=== PATIENT | female | born 1970 | race Caucasian/White ===

== ENCOUNTER → 2016-05-16 | Outpatient (CLI) | payer BC ==
[~2016-05-16] MED LIST: AMOX875T PO; CEPH500C2 PO; CETI10TA84 PO; CYCL-376 PO; CYCL10TA6 PO; DICL-201 PO; DULO60CA44 PO; EPIN1DRO OPB; ESCI10TA17 PO; EYED OPB; FLUT0.0529 NAE; MAGN400T6 PO; MAGNESIUM 64 PO; MULT-506 PO; OMEP-105 PO; ONDA4TAB10 SL; OXYC1TAB3 PO; PIND10TA PO; PSEU120T2 PO; SULF800T23 PO; SUMA100T16 PO; SUMA50TA17 PO; TOPI25TA99 PO; TOPI50TA16 PO; TRAM-10 PO
[2016-05-19 01:31] LABS: CHLAMYDIA TRACH RNA*** NOT DETECTED (NOT DETECTED); GC (NEIS GONORRHOEAE)RNA** NOT DETECTED (NOT DETECTED)
== END | disposition home or self-care (01) ==
LOC: C.LABSPEC 17:54
PROVIDERS: ATTEND Obstetrics & Gynecology
DX: N89.8 Other specified noninflammatory disorders of vagina (principal); Z11.3 Encounter for screening for infections with a predominantly sexual mode of transmission

== ENCOUNTER → 2016-08-08 | Day surgery (SDC) | payer BC ==
[2016-06-11 08:30] VITALS: BMI 27.0
[2016-07-16 14:39] VITALS: Ht 162.6 cm; Wt 72.7 kg
--- NOTE | 2016-08-07 17:57 | HISTORY & PHYSICAL EXAMINATION ---
DATE OF ADMISSION: 08/08/2016 HISTORY OF PRESENT ILLNESS: A 45-year-old female presents for preop history and physical requesting lesion surgery. Lesions are located in bilateral feet. Severity condition is graded as a 7 on a 10 point scale and gradually worsening over time. Pain is described as soreness and tenderness. Condition was first noted over 2 years ago. Denies any recent exposure, precipitation or event for this to this condition. Associated signs and symptoms include tenderness, bleomycin does not change the condition, excision of lesion does not change it, acid therapy, cryotherapy and debridement have all been used in addition in the past with no resolution of the discomfort. The patient is currently seeking pain management for back issues over the lesions on her foot are also aggravating her back due to ambulatory difficulties. PAST SURGICAL HISTORY: ACL repair in 1985, 1986, and 1987; ankle surgery in 1992, wisdom tooth removal in 1994, in 2004, hysterectomy. PAST MEDICAL HISTORY: Hypertension, back problems. MEDICATIONS: Diclofenac, Zyrtec, pindolol, tramadol, epinephrine, ophthalmic solution, Cymbalta. ALLERGIES: No known medical allergies. FAMILY HISTORY: Diabetes associated with mother, hypertension associated with mother and sister. REVIEW OF SYSTEMS: Unremarkable except chief complaint. SOCIAL HISTORY: The patient admits to alcohol use, drinking described as social. PHYSICAL EXAMINATION: VITAL SIGNS: Height 5 foot 4, weight 160 pounds, body mass index 27, BP 118/90, temp tympanic is 97.6 CONSTITUTIONAL: The patient appears well-developed and nourished with good attention to body grooming and habitus. HEAD AND FACE: Head is normocephalic and atraumatic without any gross head and neck masses. EYES: Conjunctival and pupillary reaction to light and accommodation normal. EARS, NOSE, MOUTH, AND THROAT: Unremarkable. NECK: Neck is supple. Trachea is midline. CARDIOVASCULAR: Normal S1, S2 without murmur, gallops, rubs, or clicks noted. RESPIRATORY: Chest is symmetric. No scars are visible. No port or pacemaker. LUNGS: Clear to auscultation bilaterally and equal. GASTROINTESTINAL: Abdominal organs, bladder, and kidneys show no abnormalities, tenderness, masses or rigidity. LYMPHATICS: No popliteal, inguinal, or supraclavicular lymphadenopathy noted. LOWER EXTREMITIES: DP palpable. PT palpable. DERMATOLOGIC: Cutaneous vascular lesions are observed on the right fifth, right fourth, right arch, plantar left fifth toe. All these areas show interruption of skin tension line and pain on lateral compression. NEUROLOGICAL: Touch, pin, vibratory and proprioception sensations are normal. Deep tendon reflexes normal. MUSCULOSKELETAL: Muscle tone is normal. Muscle strength 5/5 all groups tested. Anterior aspect of the right ankle shows evidence of capsulitis with pain, crepitus noted on range of motion of the ankle. IMPRESSION: 1. Painful cutaneous vascular lesions, bilateral feet, status post excision of lesions 07/14/2015 with recurrence. 2. Difficulty walking. 3. Pain in lower extremities. 4. Status post bleomycin injection 06/22/2015 and 03/20/2016 with recurrence of lesions. PLAN: Informed the patient the etiology and offered the following treatment options: 1. Debridement and application of acid. 2. Surgical excision. 3. Cryotherapy. 4. CO2 laser vaporization. 5. Bleomycin. Reviewed procedures and complications for each treatment at length. All questions were answered. The patient is aware that no treatment in common use is 100% effective and success rate for all treatments are relatively similar. The patient elects to proceed with CO2 laser vaporization and partial lesion excision over bilateral feet. This will be performed under local with IV sedation as an outpatient at the surgery center. Procedure, risks and complications were fully reviewed with the patient. Consent form, foot diagram and illustration reviewed in all their entirety. All the patient's questions were answered. Complications were discussed in detail with the patient including pain, infection, swelling that may or may not be excessive, pins and needles feeling, numbness, metatarsalgia, excessive bleeding, delay or nonhealing of bone, enlarged scar, failure of the procedure, recurrence or worsening of condition which may or may not require further surgery, adverse reaction to anesthesia, allergic reaction to suture or other implant material, loss of toe, foot, or leg; transfer lesion or callus, peripheral neurovascular complications such as phlebitis, damage to nerves or vascular structures, severe or chronic pain, chronic nerve pain or damage, and general medical complications. The patient will be required to be in a surgery shoe for a minimum of 3-7 days and not return to dress shoe for 3 weeks depending on postop edema, need for accommodative padding. The patient is aware this is an elective type procedure and I recommended a second opinion. She understood, consent form was signed with a copy of the foot diagram and illustration given to the patient. At the time of the preoperative appointment, prescriptions for Silvadene, Keflex and Percocet were dispensed. The patient will return to the office for postop check or sooner if medically necessary. Instructed to keep the dressing clean, dry, and intact until seen at the office. SENIA
[~2016-08-08] VITALS: Ht 162.6 cm; Wt 72.7 kg
[~2016-08-08] MED LIST changes: -AMOX875T PO; +BUPIVACAINE 0.5 % 5 MG/1 ML MPF 30ML VIAL ONE; +CEFAZOLIN 1000MG/55 ML D5W 55 ML IV SCH; +CEFAZOLIN 1000MG/55 ML D5W IV SCH; -CYCL-376 PO; +DEXAMETHASONE SOD INJ 4 MG/ML VIAL ONE; -EYED OPB; +FENTANYL CITRATE INJ 50 MCG/1 ML 2 ML VIAL IV PRN; +FENTANYL CITRATE INJ 50 MCG/1 ML 2 ML VIAL ONE; +GELATIN SPONGE 12-7MM ONE; +GELATIN SPONGE SZ 100 ONE; +LACTATED RINGER'S 1000ML 1,000 ML IV PRN; +LACTATED RINGER'S 1000ML 1,000 ML IV SCH; +LACTATED RINGER'S 1000ML IV SCH; +LIDOCAINE HCL 2% 2 ML VIAL (20MG/ML) ONE; -MAGN400T6 PO; +MIDAZOLAM HCL 1 MG/ML 2ML VIAL ONE; -ONDA4TAB10 SL; +ONDANSETRON INJ 2 MG/ML 2 ML VIAL IV PRN; +ONDANSETRON INJ 2 MG/ML 2 ML VIAL ONE; -OXYC1TAB3 PO; +PROPOFOL IV EMULSION 10 MG/ML 20 ML VIAL IV ONE; +SILVER SULFADIAZINE 1% CR 50 GM JAR EXT ONE; +SODIUM CHLORIDE 0.9% 1000ML 1,000 ML IV SCH; -SULF800T23 PO
--- NOTE | 2016-08-08 07:00 | History & Physical Bridge - SC ---
H&P Re-Evaluation Bridge Note: I have examined the patient, reviewed the History & Physical and in the interval since the performance of the History & Physical I have noted the following changes of clinical significance: No changes noted
--- NOTE | 2016-08-08 07:01 | Discharge Instructions-SurgCtr ---
Discharge Instructions Date of Service Aug 08, 2016. Visit Reason for Visit: Bilateral Feet Vascular Lesions, Metatarsalgia Discharge Discharge Diagnosis / Problem: same as above Discharge Goals Goal(s): Decrease discomfort Medications Stopped Medications Name(s): diclofenac, cymbalta, flexeril, and tramadol, last doses 1 week ago. Activity Recommendations Activity Limitations: as noted below Medications: * Resume previous medications unless instructed by your surgeon. * Take your medications as prescribed. Call our office ([phone]) at any time, if you experience severe pain that does not subside shortly after taking your pain medication. Activity: * You may walk on your operated foot/ankle using the surgical shoe or cast/splint. Do not put any weight on your operated foot/ankle without wearing the surgical shoe or cast sandal.. Special Care: * Keep your bandage clean and dry. Do not remove your bandage unless otherwise instructed. A small amount of blood may appear on the bandage over the surgical site. Call our office ([phone]) if you bandage becomes blood-soaked or wet. * Elevate your operated foot/ankle on pillows, above the level of your heart, as often as possible during the first 2-3 days following surgery. Keep your knee flexed slightly with a pillow under your knee when you elevate your foot/ankle. * Apply a ice bag to your foot/ankle over the operative site for 20-30 minutes out of each hour while you are awake. Do not allow the ice bag to directly contact bare skin. * Avoid bumping or handling any pins visible in your toes. If any pin feels or appears loose, call the office ([phone]). * Take your oral temperature in the morning and at bedtime. Call our office ([phone]) if your temperature rises above 101 degrees Fahrenheit. Call your surgeon's office at ([phone]) for any problems or concerns such as excessive bleeding and/or pain unrelieved by your prescribed pain medications. If you have any questions, please do not hesitate to ask them. Avoid all tobacco products. If you need help to stop smoking, call [place]'s FREE QUITLINE at . This is a free call. Follow-up: Follow-up with Dr. Guerra Anesthesia . Post Anesthesia Instructions: If you have had General Anesthesia or IV Sedation: * Do not drive today. * Resume driving when surgeon permits. * Do not make important decisions or sign legal documents today. * Call surgeon for: 1. Temperature elevations greater than 101 degrees F. 2. Uncontrollable pain. 3. Excessive bleeding. 4. Persistent nausea and vomiting. 5. Medication intolerance (nausea, vomiting or rash). * For nausea and vomiting use only clear liquids such as: tea, soda, bouillon until nausea subsides, then gradually increase diet as tolerated. * If you have any concerns or questions, call your surgeon's office. If physician is unavailable and it is an emergency, call 911 or go to the nearest emergency room. . Diet Recommendations Home Diet: resume previous diet Pending Studies Studies pending at discharge: no Medical Emergencies . Who to Call and When: Medical Emergencies: If at any time you feel your situation is an emergency, please call 911 immediately. . Non-Emergent Contact Non-Emergency issues call your: Primary Care Provider . . "Provider Documentation" section prepared by Maya Alvarez. .
--- NOTE | 2016-08-08 07:54 | OPERATIVE REPORT ---
DATE OF OPERATION: 08/08/2016 SURGEON: Dr. Guerra. PREOPERATIVE DIAGNOSES: 1. Painful lesions. 2. Cutaneous vascular lesions bilateral lower extremities. POSTOPERATIVE DIAGNOSES: Same. PROCEDURE: 1. CO2 laser vaporization less than 10 square cm bilateral lower extremities. 2. Partial lesion excision to a depth of 1.2 cm, 2 areas on the right and 3 areas on the left for a total of 5 partial lesion excisions. ANESTHESIA: General with local field block performed with 0.5% Marcaine plain, total of 30 mL HEMOSTASIS: Gelfoam. ESTIMATED BLOOD LOSS: Minimal. COMPLICATIONS: None. The patient tolerated the procedure and anesthesia well without complications, transferred to the recovery room with vital signs stable and neurovascular status intact. I attest to the content of the Intraoperative Record and any orders documented therein. Any exceptio ns are noted below.
--- NOTE | 2016-08-08 08:02 | Anesthesia Progress Nt - [facility] ---
Anesthesia Post Op Note Date & Time Aug 08, 2016 at 08:01 Vital Signs Pain Intensity: 0 Vital Signs Past 12 Hours Date Time Temp Pulse Resp B/P Pulse Ox O2 Delivery O2 Flow Rate FiO2 08/08/16 07:42 36.5 81 14 109/87 0 Mask 6 08/08/16 06:31 36.5 76 18 132/92 97 Room Air Notes Mental Status: alert / awake / arousable, participated in evaluation Pt Amnestic to Procedure: Yes Nausea / Vomiting: adequately controlled Pain: adequately controlled Airway Patency, RR, SpO2: stable & adequate BP & HR: stable & adequate Hydration State: stable & adequate Anesthetic Complications: no major complications apparent After a long discussion about GA vs IV sedation, pt chose GA. She did fine. SpO2 100%, not zero as noted above.
[2016-08-08 08:20] VITALS: TEMP 36.6
[2016-08-08 08:45] VITALS: BP 122/81; PULSE 63; O2SAT 99
== END | disposition home or self-care (01) ==
LOC: X.SURG 06:13
PROVIDERS: ATTEND Podiatrist Foot & Ankle Surgery
DX: L85.9 Epidermal thickening, unspecified (principal); I10 Essential (primary) hypertension; Z79.899 Other long term (current) drug therapy

== ENCOUNTER → 2016-08-28 | Outpatient (CLI) | payer BC ==
[~2016-08-28] MED LIST changes: -BUPIVACAINE 0.5 % 5 MG/1 ML MPF 30ML VIAL ONE; -CEFAZOLIN 1000MG/55 ML D5W 55 ML IV SCH; -CEFAZOLIN 1000MG/55 ML D5W IV SCH; -DEXAMETHASONE SOD INJ 4 MG/ML VIAL ONE; -FENTANYL CITRATE INJ 50 MCG/1 ML 2 ML VIAL IV PRN; -FENTANYL CITRATE INJ 50 MCG/1 ML 2 ML VIAL ONE; -GELATIN SPONGE 12-7MM ONE; -GELATIN SPONGE SZ 100 ONE; -LACTATED RINGER'S 1000ML 1,000 ML IV PRN; -LACTATED RINGER'S 1000ML 1,000 ML IV SCH; -LACTATED RINGER'S 1000ML IV SCH; -LIDOCAINE HCL 2% 2 ML VIAL (20MG/ML) ONE; -MIDAZOLAM HCL 1 MG/ML 2ML VIAL ONE; -ONDANSETRON INJ 2 MG/ML 2 ML VIAL IV PRN; -ONDANSETRON INJ 2 MG/ML 2 ML VIAL ONE; -PROPOFOL IV EMULSION 10 MG/ML 20 ML VIAL IV ONE; -SILVER SULFADIAZINE 1% CR 50 GM JAR EXT ONE; -SODIUM CHLORIDE 0.9% 1000ML 1,000 ML IV SCH
[2016-08-31 11:44] LABS: CHLAMYDIA TRACH RNA*** NOT DETECTED (NOT DETECTED); GC (NEIS GONORRHOEAE)RNA** NOT DETECTED (NOT DETECTED)
== END | disposition home or self-care (01) ==
LOC: C.LABSPEC 13:25
PROVIDERS: ATTEND Obstetrics & Gynecology
DX: N76.0 Acute vaginitis (principal)

== ENCOUNTER → 2016-12-13 | Outpatient (CLI) | payer BC ==
[~2016-12-13] MED LIST changes: -CEPH500C2 PO; -SUMA50TA17 PO; -TOPI25TA99 PO
== END | disposition home or self-care (01) ==
LOC: C.LABSPEC 17:32
PROVIDERS: ATTEND Physician Assistant
DX: N76.0 Acute vaginitis (principal)

== ENCOUNTER → 2017-01-21 | Outpatient (CLI) | payer BC ==
--- NOTE | 2017-01-22 07:40 | MAMMOGRAPHY REPORT ---
BILATERAL DIGITAL SCREENING MAMMOGRAM TOMOSYNTHESIS WITH CAD: 01/21/2017 CLINICAL HISTORY: Routine screening. Patient has no complaints. TECHNIQUE: Breast tomosynthesis in addition to standard 2D mammography was performed. Current study was also evaluated with a Computer Aided Detection (CAD) system. COMPARISON: Comparison is made to exams dated: 01/19/2016 mammogram, 05/21/2013 mammogram, 11/10/2009 ma mmogram, 07/11/2005 mammogram, and 11/10/2009 ultrasound - [facility]. BREAST COMPOSITION: The tissue of both breasts is almost entirely fatty. FINDINGS: No suspicious mass, architectural distortion or cluster of microcalcifications is seen. IMPRESSION: ACR BI-RADS CATEGORY 1: NEGATIVE There is no mammographic evidence of malignancy. A 1 year screening mammogram is recommended. The pa tient will receive written notification of the results. Approximately 10% of breast cancers are not detected with mammography. A negative mammographic report should not delay biopsy if a clinically suggestive mass is present. Lizette tobias/penfreida:01/21/2017 14:42:54 Digital Photo Printer: Katerin MARTIN(Susan)(M), [facility] letter sent: Normal 1/2 BI-RADS Code: ACR BI-RADS Category 1: Negative
== END | disposition home or self-care (01) ==
LOC: C.MAMM 09:38
PROVIDERS: ATTEND Obstetrics & Gynecology
DX: Z12.31 Encounter for screening mammogram for malignant neoplasm of breast (principal)

== ENCOUNTER → 2017-01-22 | Outpatient (CLI) | payer BC | END | disposition home or self-care (01) | LOC: C.LABSPEC 17:04 | PROVIDERS: ATTEND Podiatrist Foot & Ankle Surgery | DX: L60.0 Ingrowing nail (principal) ==

== ENCOUNTER → 2017-04-16 | Outpatient (CLI) | payer BC ==
[2017-04-16 13:06] LABS: BASO % 0.3 %; BASO ABS # 0.02 K/uL (0-0.2); EOS % 4.2 %; EOS ABS # 0.26 K/uL (0-0.5); HEMATOCRIT 43.6 % (37-47); HEMOGLOBIN 14.7 g/dL (12.0-16.0); IG# 0.05 K/uL (0.00-0.02); LYMPH ABS # 1.53 K/uL (1.2-3.4); MEAN CELL VOLUME 91.8 fL (80-100); MEAN CORPUSCULAR HEMOGLOBIN 30.9 pg (25-34); MEAN CORPUSCULAR HGB CONC 33.7 g/dl (32-36); MEAN PLATELET VOLUME 9.1 fL (7.4-10.4); MONO % 6.5 %; NEUT % 63.2 %; NEUT ABS # 3.87 K/uL (1.4-6.5); PLATELET COUNT 287 K/uL (130-400); RED CELL DISTRIBUTION WIDTH CV 13.1 % (11.5-14.5); RED CELL DISTRIBUTION WIDTH SD 43.7 fL (36.4-46.3); WHITE BLOOD COUNT 6.13 K/uL (4.8-10.8)
--- NOTE | 2017-05-07 13:31 | CODING QUERY NO DIAGNOSIS ---
TREATMENT RENDERED WITHOUT A DIAGNOSIS To promote full compliance with coding requirements relating to patient care, physician participation is requested in all cases of area field worker uncertainty. Please assist us with providing a diagnosis/symptom for the test(s) below: A diagnosis/symptom was not documented on your Order. A valid diagnosis/symptom is required to bill all insurances. Please remember that we are unable to code a diagnosis of rule out, probable, possible, questionable, or suspected. Tests that require a diagnosis: * CBC W/ AUTO DIFF DIAGNOSIS: * ERYTHROCYTE SEDIMENTATION RATE DIAGNOSIS: * URIC ACID DIAGNOSIS: Provider Signature: Date: Thank you Sarah Gomez [employer] Once completed, please kindly fax back to [phone] For questions please call [phone]
== END | disposition home or self-care (01) ==
LOC: C.LAB1850 11:38
PROVIDERS: ATTEND Podiatrist Foot & Ankle Surgery
DX: M79.671 Pain in right foot (principal)

== ENCOUNTER → 2017-04-17 | Outpatient (CLI) | payer BC ==
[~2017-04-17] MED LIST changes: +FLUT0.15 NAE; -OMEP-105 PO; +OMEP-107 PO; +TOPI100T34 PO
--- NOTE | 2017-04-17 09:29 | DIAGNOSTIC IMAGING REPORT ---
VENOUS DOPP LOWER EXT UNILAT CLINICAL HISTORY: R LEG SWELLING/PAIN, R/O DVT TECHNIQUE: Venous Doppler COMPARISON STUDY: 05/29/2012 FINDINGS: Normal venous Doppler right leg IMPRESSION: Normal venous Doppler right leg The above report was generated using voice recognition software. It may contain grammatical, syntax or spelling errors. Electronically signed by: Kobi Steen M.D. 04/17/2017 9:28 AM Dictated Date/Time: 04/17/2017 9:12 AM
== END | disposition home or self-care (01) ==
LOC: C.ULTR 08:46
PROVIDERS: ATTEND Podiatrist Foot & Ankle Surgery
DX: I82.491 Acute embolism and thrombosis of other specified deep vein of right lower extremity (principal)

== ENCOUNTER → 2017-05-20 | Outpatient (CLI) | payer BC ==
[~2017-05-20] MED LIST changes: -FLUT0.15 NAE; +OMEP-105 PO; -OMEP-107 PO; -TOPI100T34 PO
== END | disposition home or self-care (01) ==
LOC: C.PATHSPEC 17:28
PROVIDERS: ATTEND Podiatrist Foot & Ankle Surgery
DX: B07.9 Viral wart, unspecified (principal)

== ENCOUNTER → 2017-07-04 | Outpatient (CLI) | payer BC | END | disposition home or self-care (01) | LOC: C.LABSPEC 17:25 | PROVIDERS: ATTEND Podiatrist Foot & Ankle Surgery | DX: B07.8 Other viral warts (principal) ==

== ENCOUNTER → 2017-08-08 | Outpatient (CLI) | payer BC ==
[~2017-08-08] MED LIST changes: -OMEP-105 PO; +OMEP-107 PO
== END | disposition home or self-care (01) ==
LOC: C.LABSPEC 16:49
PROVIDERS: ATTEND Podiatrist Foot & Ankle Surgery
DX: B07.8 Other viral warts (principal)

== ENCOUNTER 2020-12-02 10:55 | Inpatient (IN) ==
[2020-12-02] MEDS ORDERED: SODIUM CHLORIDE 0.9% 1000ML 1,000 ML IV ONE ×2 (11:40→15:58)
[2020-12-02] MEDS ORDERED: ONDANSETRON INJ 2 MG/ML 2 ML VIAL IV STA (11:40)
[2020-12-02] MEDS ORDERED: KETOROLAC TROMETHAMINE 15 MG/ML VIAL IV STA (11:40)
--- NOTE | 2020-12-02 11:43 | Emergency Department Note ---
History of Present Illness General Chief complaint: Flank Pain Stated complaint: L SIDE FLANK PAIN,KIDNEY STONE Time Seen by Provider: 12/02/20 11:15 Source: patient Mode of arrival: ambulatory Limitations: no limitations History of Present Illness Maximum Pain Intensity: 10 This patient is a 50-year-old female who presents to the emergency department for evaluation of left flank pain. Patient states that she was seen here 2 days ago and diagnosed with a kidney stone on the left side. She states that her pain was not under control, but she was discharged home. She states she has been unable to keep any of her medications down. She has had vomiting and explosive diarrhea. She reports she has had night sweats, but has not taken her temperature. She has an appointment in [address] [facility] u[facility]. She rates her current pain a 10/10. Home Medications Medication Instructions Recorded Confirmed Type cetirizine 10 mg tablet (Zyrtec) 10 mg PO DAILY 07/05/18 12/02/20 History multivitamin 1 tab PO DAILY 07/05/18 12/02/20 History promethazine 25 mg tablet 25 mg PO TID PRN 30 Days #90 tab 11/12/19 12/02/20 Rx omeprazole 40 mg capsule,delayed 40 mg PO DAILY PRN 02/09/20 12/02/20 History release metoprolol succinate 25 mg 25 mg PO DAILY #90 tab 04/14/20 12/02/20 Rx tablet,extended release 24 hr cyclobenzaprine 10 mg tablet 10 mg PO BID PRN 30 Days #60 tab 07/27/20 12/02/20 Rx diclofenac sodium 75 mg 75 mg PO BID 30 Days #60 tab 07/27/20 12/02/20 Rx tablet,delayed release topiramate 100 mg tablet 100 mg PO BID #60 tab 07/27/20 12/02/20 Rx fluticasone propionate 50 2 spray INTRANASAL DAILY #48 gm 09/02/20 12/02/20 Rx mcg/actuation nasal spray,suspension (Flonase Allergy Relief) fremanezumab-vfrm 225 mg/1.5 mL 225 mg SUBCUT MONTHLY #1.5 ml 09/28/20 12/02/20 Rx subcutaneous auto-injector (Ajovy) magnesium chloride 64 mg 64 mg PO DAILY #30 tab 09/28/20 12/02/20 Rx (magnesium chloride) tablet,delayed release (Mag 64) sumatriptan succinate 100 mg 100 mg PO .COMPLEX PRN 30 Days #9 09/28/20 12/02/20 Rx tablet (Imitrex) tab escitalopram oxalate 10 mg tablet 10 mg PO DAILY #30 tab 11/23/20 12/02/20 Rx epinastine 0.05 % eye drops 2 drp OPHTHALMIC (EYE) QAM #5 ml 11/28/20 12/02/20 Rx ondansetron 4 mg disintegrating 4 mg PO Q8H PRN #10 tab 11/30/20 12/02/20 Rx tablet oxycodone 5 mg tablet 5 mg PO Q6H PRN #12 tab 11/30/20 12/02/20 Rx tamsulosin 0.4 mg capsule (Flomax) 0.4 mg PO DAILY 7 Days #7 cap 11/30/20 12/02/20 Rx Allergies Allergy/AdvReac Type Severity Reaction Status Date / Time diclofenac [From Pennsaid] AdvReac Intermediate Nausea Unverified 12/02/20 11:44 Past Med/Surg History Medical History (Updated 12/02/20 @ 20:22 by Diana Hannah PA-C) Cervicogenic headache Dehiscence of vaginal cuff HTN (hypertension) Lumbar facet joint syndrome Migraine Migraine without aura, not intractable, without status migrainosus Obstructive uropathy Renal colic Status post hysteroscopy UTI (urinary tract infection) Surgical History History of ankle surgery History of endometrial ablation S/P ACL repair S/P section S/P colonoscopy S/P knee surgery Family History Mother Adenosarcoma Unknown Hypertension Nephrolithiasis Father Leukemia Other Family history non-contributory Denies family history of Ovarian cancer Prostate cancer Myocardial infarction Breast cancer Colorectal cancer Social History Smoking Status: Never smoker Second Hand Exposure: No; Hx Alcohol Use: Yes Alcohol type: beer and wine Alcohol Intake Frequency: 2-4 x/Month Hx Substance Use: No Preferred Language: Italian Communication Ability: Effective Psych Coordinator Required: No Beliefs That Will Affect Care: None marital status: Legally Current Living Situation: Alone current occupational status: employed 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[employer] Other Information That Helps Us Care for You: No Feels Safe at Home: Yes Safety Concerns: Feels Safe At This Time Childhood Exposure to Second-Hand Smoke: No Dental Care, Regularly: Yes Physical Activity Frequency: Does not Exercise Seatbelt Use: always Sunscreen Use: No Assistive Devices: None Review of Systems A total of 10 systems reviewed and were otherwise negative Physical Exam Vital Signs Vital Signs - 24 hr 12/02/20 11:07 12/02/20 11:24 12/02/20 11:39 Temperature 36.9 C 37.2 C Temperature Source Oral Oral Pulse Rate 123 H 99 H Pulse Rate [Finger] Pulse Rhythm Regular Regular Pulse Rhythm [Finger] Respiratory Rate 18 18 16 Respiratory Effort / Characteristics Non-Labored Spontaneous Non-Labored Respiratory Depth Normal Normal Blood Pressure 144/89 H Blood Pressure [Left Arm] 161/110 H Blood Pressure Mean 107 Blood Pressure Mean [Left Arm] 127 Pulse Oximetry 96 96 Oxygen Delivery Method Room Air Room Air Sepsis Recent Fever Within 48 Hours No Sepsis New/Unexplained Change in Mental Status No Sepsis Action Taken by Nursing No Action Required 12/02/20 14:00 Temperature Temperature Source Pulse Rate Pulse Rate [Finger] 95 H Pulse Rhythm Pulse Rhythm [Finger] Regular Respiratory Rate 15 Respiratory Effort / Characteristics Non-Labored Respiratory Depth Normal Blood Pressure Blood Pressure [Left Arm] Blood Pressure Mean Blood Pressure Mean [Left Arm] Pulse Oximetry 96 Oxygen Delivery Method Sepsis Recent Fever Within 48 Hours Sepsis New/Unexplained Change in Mental Status Sepsis Action Taken by Nursing VITALS: Vitals are noted on the nurse's note and reviewed by myself. GENERAL: This is a 50-year-old female, uncomfortable appearing, in mild distress secondary to pain. SKIN: The skin was without rashes. EYES: Pupils equal round and reactive to light and accommodation. MOUTH: Mucous membranes moist. Tonsils are not enlarged. Pharynx without erythema or exudate. NECK: Supple without nuchal rigidity. HEART: Regular rate and rhythm without murmurs gallops or rubs. LUNGS: Clear to auscultation bilaterally without wheezes, rales or rhonchi. ABDOMEN: Positive bowel sounds x 4. Soft, mild left lower quadrant tenderness to palpation. Left CVA tenderness. No guarding or rebound tenderness. NEURO: Patient was alert and oriented to person place and time. Course Consultations Consultation #1: Dr. Castorena - [facility] [place] hospitalist Administered Medications Lactated Ringer's (Lr) 1,000 mls @ 125 mls/hr IV .Q8H JAKE Stop: 12/03/20 11:24 Last Admin: 12/02/20 19:52 Dose: 125 mls/hr Documented by: [id number] Tamsulosin HCl (Tamsulosin Hcl 0.4 Mg Cap) 0.4 mg PO DAILY JAKE Stop: 01/01/21 19:24 Last Admin: 12/02/20 20:05 Dose: 0.4 mg Documented by: [id number] Discontinued Medications Sodium Chloride (Nss 1000ml) 1,000 mls @ 999 mls/hr IV .Q1H1M ONE Stop: 12/02/20 12:40 Last Infusion: 12/02/20 13:47 Dose: 0 mls/hr Documented by: [id number] Infusion: 12/02/20 13:35 Dose: 0 mls/hr Documented by: [id number] Admin: 12/02/20 12:41 Dose: 999 mls/hr Documented by: [id number] Sodium Chloride (Nss 1000ml) 1,000 mls @ 999 mls/hr IV .Q1H1M ONE Stop: 12/02/20 16:58 Last Infusion: 12/02/20 17:52 Dose: 0 mls/hr Documented by: [id number] Admin: 12/02/20 16:27 Dose: 999 mls/hr Documented by: [id number] Ketorolac Tromethamine (Ketorolac Tromethamine 15 Mg/Ml Vial) 15 mg IV NOW STA Stop: 12/02/20 11:41 Last Admin: 12/02/20 12:41 Dose: 15 mg Documented by: [id number] Morphine Sulfate (Morphine Sulfate 4 Mg/Ml 1 Ml Carp\Vial) 4 mg IV NOW STA Stop: 12/02/20 15:59 Last Admin: 12/02/20 16:26 Dose: 4 mg Documented by: [id number] Ondansetron HCl (Ondansetron Inj 2 Mg/Ml 2 Ml Vial) 4 mg IV NOW STA Stop: 12/02/20 11:41 Last Admin: 12/02/20 12:41 Dose: 4 mg Documented by: [id number] Medical Decision Making Differential Diagnosis Differential diagnosis includes renal calculus, pyelonephritis, musculoskeletal pain, ruptured AAA, aortic dissection, diverticulitis, perforated viscus, bowel obstruction, biliary pathology, pancreatitis, PE, pneumonia, pneumothorax, trauma, herpes zoster, malignancy, among others. Home Medications Current Medication List: was personally reviewed by me Laboratory Data Attestation: I reviewed the patient's lab results. Result diagrams: 12/02/20 11:30 12/02/20 11:30 Lab Results 12/02/20 12/02/20 12/02/20 Range/Units 11:30 11:30 14:00 WBC 7.24 (4.8-10.8) K/uL RBC 5.09 (4.2-5.4) M/uL Hgb 15.6 (12.0-16.0) g/dL Hct 46.2 (37-47) % MCV 90.8 (80-100) fL MCH 30.6 (25-34) pg MCHC 33.8 (32-36) g/dL RDW Std Deviation 43.7 (36.4-46.3) fL RDW Coeff of Faustino 13.3 (11.5-14.5) % Plt Count 292 (130-400) K/uL MPV 9.3 (7.4-10.4) fL Immature Gran % (Auto) 0.3 % Neut % (Auto) 77.6 % Lymph % (Auto) 11.2 % [place] % (Auto) 9.0 % Eos % (Auto) 1.8 % Baso % (Auto) 0.1 % Neut # (Auto) 5.62 (1.4-6.5) K/uL Lymph # (Auto) 0.81 L (1.2-3.4) K/uL [place] # (Auto) 0.65 H (0.11-0.59) K/uL Eos # (Auto) 0.13 (0-0.5) K/uL Baso # (Auto) 0.01 (0-0.2) K/uL Immature Gran # (Auto) 0.02 (0.00-0.02) K/uL Sodium 140 (136-145) mmol/L Potassium TNP Chloride 111 H (98-107) mmol/L Carbon Dioxide 23 (21-32) mmol/L Anion Gap 6.0 (3-11) BUN 21 H (7-18) mg/dl Creatinine 1.26 H (0.6-1.2) mg/dl Est Cr Clr Drug Dosing 59.8 ml/min Est GFR ( Amer) 57.9 ml/min Est GFR (Non-Af Amer) 50.0 ml/min BUN/Creatinine Ratio 16.9 (10-20) Glucose 137 H (70-99) mg/dl Calcium 8.4 L (8.5-10.1) mg/dl Total Bilirubin 0.5 (0.2-1) mg/dl AST TNP ALT 33 (12-78) U/L Alkaline Phosphatase 121 H (45-117) U/L Total Protein 7.7 (6.4-8.2) gm/dl Albumin 3.2 L (3.4-5.0) gm/dl Globulin 4.5 H (2.5-4.0) gm/dl Albumin/Globulin Ratio 0.7 L (0.9-2) Urine Color Dark Yellow Urine Appearance Clear (Clear) Urine pH 5.5 (4.5-7.5) Ur Specific [place] 1.024 (1.000-1.030) Urine Protein Trace H (Negative) Urine Glucose (UA) Negative (Negative) Urine Ketones 1+ H (Negative) Urine Blood Negative (Negative) Urine Nitrite Negative (Negative) Urine Bilirubin Negative (Negative) Urine Urobilinogen Negative (Negative) Ur Leukocyte Esterase Negative (Negative) Urine WBC (Auto) 10-30 H (0-5) /hpf Urine RBC (Auto) 0-4 (0-4) /hpf U Hyaline Cast (Auto) 5-10 H (0-5) /lpf U Epithel Cells (Auto) >30 H (0-5) /lpf Urine Bacteria (Auto) 1+ H (Negative) COVID-19 Eval Order SARS-CoV-2 (PCR) (Negative) 12/02/20 12/02/20 Range/Units 14:50 14:50 WBC (4.8-10.8) K/uL RBC (4.2-5.4) M/uL Hgb (12.0-16.0) g/dL Hct (37-47) % MCV (80-100) fL MCH (25-34) pg MCHC (32-36) g/dL RDW Std Deviation (36.4-46.3) fL RDW Coeff of Faustino (11.5-14.5) % Plt Count (130-400) K/uL MPV (7.4-10.4) fL Immature Gran % (Auto) % Neut % (Auto) % Lymph % (Auto) % [place] % (Auto) % Eos % (Auto) % Baso % (Auto) % Neut # (Auto) (1.4-6.5) K/uL Lymph # (Auto) (1.2-3.4) K/uL [place] # (Auto) (0.11-0.59) K/uL Eos # (Auto) (0-0.5) K/uL Baso # (Auto) (0-0.2) K/uL Immature Gran # (Auto) (0.00-0.02) K/uL Sodium (136-145) mmol/L Potassium Chloride (98-107) mmol/L Carbon Dioxide (21-32) mmol/L Anion Gap (3-11) BUN (7-18) mg/dl Creatinine (0.6-1.2) mg/dl Est Cr Clr Drug Dosing ml/min Est GFR ( Amer) ml/min Est GFR (Non-Af Amer) ml/min BUN/Creatinine Ratio (10-20) Glucose (70-99) mg/dl Calcium (8.5-10.1) mg/dl Total Bilirubin (0.2-1) mg/dl AST ALT (12-78) U/L Alkaline Phosphatase (45-117) U/L Total Protein (6.4-8.2) gm/dl Albumin (3.4-5.0) gm/dl Globulin (2.5-4.0) gm/dl Albumin/Globulin Ratio (0.9-2) Urine Color Urine Appearance (Clear) Urine pH (4.5-7.5) Ur Specific [place] (1.000-1.030) Urine Protein (Negative) Urine Glucose (UA) (Negative) Urine Ketones (Negative) Urine Blood (Negative) Urine Nitrite (Negative) Urine Bilirubin (Negative) Urine Urobilinogen (Negative) Ur Leukocyte Esterase (Negative) Urine WBC (Auto) (0-5) /hpf Urine RBC (Auto) (0-4) /hpf U Hyaline Cast (Auto) (0-5) /lpf U Epithel Cells (Auto) (0-5) /lpf Urine Bacteria (Auto) (Negative) COVID-19 Eval Order Covid19 at [facility] SARS-CoV-2 (PCR) NEGATIVE (Negative) Imaging Data Attestation: I personally reviewed and interpreted this imaging study as follo ws: Radiologist's Impression: KUB X-Ray 12/02/20 11:40 XR KUB/Abdomen 1 view CLINICAL HISTORY: left flank pain, kidney stone COMPARISON STUDY: November 30, 2020 FINDINGS: Multiple gas-filled loops of bowel are dilated measuring up to 7.8 cm in diameter. No significant bowel loops dilatation was seen on prior study Gas-filled loop of bowel is seen projecting to pelvic region. Multiple calcifications are seen within bilateral hemiabdomen and may or may not represent nephrolithiasis, stable since prior, largest is seen on the right and measured 1.6 cm. IMPRESSION: 1. Interval dilatation of loops of large bowel, might represent ileus. Development of bowel obstruction cannot be completely ruled out. Please correlate above-mentioned findings with clinical presentation. 2. Stable multiple calculi within the abdomen, unchanged since recent prior study performed on December 01, 2019. ACT 112: Negative or not required by law. The above report was generated using voice recognition software. It may contain grammatical, syntax or spelling errors. Electronically signed by: Jocelin Stevenson DO 12/02/2020 12:45 PM Abdomen/Pelvis CT 12/02/20 13:34 CT SCAN OF THE ABDOMEN AND PELVIS WITHOUT IV CONTRAST CLINICAL HISTORY: Left flank pain. Known left ureteral calculus. COMPARISON STUDY: Abdominal CT dated 11/30/2020. TECHNIQUE: CT scan of the abdomen and pelvis is performed from the lung bases to the proximal femora. Images are reviewed in the axial, sagittal, and coronal planes. IV contrast was not administered for this examination. A dose lowering technique was utilized adhering to the principles of ALARA. CT DOSE: 869.47 mGy.cm FINDINGS: Lung bases: The heart is normal in size and without pericardial effusion. There are scattered coronary artery calcifications. The lung bases are clear noting bibasilar scarring/atelectasis. Liver: The unenhanced liver is enlarged, measuring over 21 cm in length. The liver demonstrates diffusely diminished attenuation consistent with hepatic steatosis. There is no intrahepatic biliary ductal dilatation. Gallbladder: Unremarkable. Spleen: Normal in size and attenuation. Pancreas: Unremarkable. Adrenal glands: Unremarkable. Kidneys: The unenhanced kidneys are normal in size. There is a 6 mm obstructing calculus again seen in the left ureter on image #324. This is unchanged in position from 11/30/2020, located at the level of L5-S1 and causing moderate left hydroureteronephrosis. There is associated left-sided perinephric and periureteric stranding and trace fluid. There are least 5 additional nonobstructing left renal calculi which measure up to 5 mm. There are least 6 additional nonobstructing right renal calculi which measure up to 10 mm. No right ureteral stone is seen. There is no right-sided hydronephrosis. There is no evidence of contour deforming renal mass lesion. Abdominal vasculature: The abdominal aorta is normal in course and caliber. Bowel: There are scattered colonic diverticula without CT evidence of acute diverticulitis. Liquid stool is noted in the colon. The appendix is well- visualized and normal. Peritoneum: There is no intraperitoneal free air or abdominal ascites. Lymphadenopathy: None. Pelvic viscera: The bladder is normal as visualized. The uterus is surgically absent. A 2.8 cm dominant follicle is again seen in the left ovary. Skeletal structures: No lytic or blastic lesions are seen. IMPRESSION: 1. No significant change from study performed 2 days previously. A 6 mm obstructing calculus is again seen in the mid left ureter as above causing moderate left hydroureteronephrosis. 2. Numerous additional nonobstructing calculi are seen in both kidneys as above. 3. Hepatomegaly and hepatic steatosis. 4. Scattered colonic diverticula without CT evidence of acute diverticulitis. 5. Additional findings as above. ACT 112: Negative or not required by law. Electronically signed by: Miguel Dutton M.D. 12/02/2020 2:26 PM MDM Narrative Continuous radiation monitor: Order was placed for continuous radiation monitor. Patient was placed on the radiation monitor. Patient was noted to be in sinus tachycardia at an initial rate of 105 bpm. The patient is a 50-year-old female who presents today complaining of uncontrolled symptoms of a kidney stone. Patient was seen here 2 days ago and diagnosed with a left ureteral stone. She has been unable to keep her med ication down at home and states that her symptoms are poorly controlled due to this. Her labs revealed no leukocytosis. Creatinine is minimally elevated. Urinalysis is not suggestive of infection. An x-ray was performed and there were findings suggestive of possible bowel obstruction, therefore a repeat CT was performed. This showed no evidence of bowel obstruction but did show a redemonstration of the left ureteral stone. Patient received 2 L of IV fluids, Toradol, Zofran and a dose of morphine. She did not feel that she would be able to control her symptoms at home. The case was discussed with the [facility] Hospitalist service, who agreed to evaluate the patient for further care. Impression & Plan Calculus of left ureter, Vomiting Discharge Plan Visit Data Chief Complaint: Flank Pain Stated Complaint: L SIDE FLANK PAIN,KIDNEY STONE ED Provider: Mark Greco ED Midlevel Provider: Diana Hannah Discharge Problem: Calculus of left ureter, Vomiting Patient Disposition: Admitted As Inpatient Discharge Instructions Interventions: ED Discharge Assessment Last Done: 12/02/20 18:28 Discharge Problem: Vomiting Qualifiers: Vomiting type: unspecified Vomiting Intractability: non-intractable Nausea presence: with nausea Qualified Code(s): R11.2 - Nausea with vomiting, unspecified
[2020-12-02 11:55] LABS: Basophils # (auto) 0.01 K/uL (0-0.2); Basophils % (auto) 0.1 %; Eosinophils # (auto) 0.13 K/uL (0-0.5); Eosinophils % (auto) 1.8 %; Hematocrit (blood only) 46.2 % (37-47); Hemoglobin 15.6 g/dL (12.0-16.0); Immature Granulocytes # (auto) 0.02 K/uL (0.00-0.02); Immature Granulocytes % (auto) 0.3 %; Lymphocytes # (auto) 0.81 K/uL (1.2-3.4); Lymphocytes % (auto) 11.2 %; Mean Corpuscular Hemoglobin 30.6 pg (25-34); Mean Corpuscular Hgb Conc 33.8 g/dL (32-36); Mean Corpuscular Volume 90.8 fL (80-100); Mean Platelet Volume 9.3 fL (7.4-10.4); Monocytes # (auto) 0.65 K/uL (0.11-0.59); Neutrophils # (auto) 5.62 K/uL (1.4-6.5); Neutrophils % (auto) 77.6 %; Platelet Count 292 K/uL (130-400); RDW Coefficient of Variation 13.3 % (11.5-14.5); RDW Standard Deviation 43.7 fL (36.4-46.3); Red Blood Count 5.09 M/uL (4.2-5.4); White Blood Count 7.24 K/uL (4.8-10.8)
[2020-12-02 12:10] LABS: Alanine Aminotransferase 33 U/L (12-78); Albumin Globulin Ratio 0.7 (0.9-2); Albumin Level 3.2 gm/dl (3.4-5.0); Alkaline Phosphatase 121 U/L (45-117); BUN Creatinine Ratio 16.9 (10-20); Bilirubin,Total 0.5 mg/dl (0.2-1); Blood Urea Nitrogen 21 mg/dl (7-18); Calcium 8.4 mg/dl (8.5-10.1); Carbon Dioxide 23 mmol/L (21-32); Chloride 111 mmol/L (98-107); Creatinine Clr Calc Pharmacy 59.8 ml/min; Est GFR (African American) 57.9 ml/min; Globulin 4.5 gm/dl (2.5-4.0); Glucose 137 mg/dl (70-99); Total Protein 7.7 gm/dl (6.4-8.2)
[2020-12-02 12:39] LABS: Sodium 140 mmol/L (136-145)
--- NOTE | 2020-12-02 12:46 | XRay Report ---
XR KUB/Abdomen 1 view CLINICAL HISTORY: left flank pain, kidney stone COMPARISON STUDY: November 30, 2020 FINDINGS: Multiple gas-filled loops of bowel are dilated measuring up to 7.8 cm in diameter. No significant bow el loops dilatation was seen on prior study Gas-filled loop of bowel is seen projecting to pelvic region. Multiple calcifications are seen within bilateral hemiabdomen and may or may not represent nephrolith iasis, stable since prior, largest is seen on the right and measured 1.6 cm. IMPRESSION: 1. Interval dilatation of loops of large bowel, might represent ileus. Development of bowel obstruct ion cannot be completely ruled out. Please correlate above-mentioned findings with clinical presentat ion. 2. Stable multiple calculi within the abdomen, unchanged since recent prior study performed on Augus 2019. ACT 112: Negative or not required by law. The above report was generated using voice recognition software. It may contain grammatical, syntax o r spelling errors. Electronically signed by: Jocelin Stevenson DO 12/02/2020 12:45 PM
--- NOTE | 2020-12-02 14:27 | CT Scan Report ---
CT SCAN OF THE ABDOMEN AND PELVIS WITHOUT IV CONTRAST CLINICAL HISTORY: Left flank pain. Known left ureteral calculus. COMPARISON STUDY: Abdominal CT dated 11/30/2020. TECHNIQUE: CT scan of the abdomen and pelvis is performed from the lung bases to the proximal femora. Images are reviewed in the axial, sagittal, and coronal planes. IV contrast was not administered for this examination. A dose lowering technique was utilized adhering to the principles of ALARA. CT DOSE: 869.47 mGy.cm FINDINGS: Lung bases: The heart is normal in size and without pericardial effusion. There are scattered coronar y artery calcifications. The lung bases are clear noting bibasilar scarring/atelectasis. Liver: The unenhanced liver is enlarged, measuring over 21 cm in length. The liver demonstrates diffu sely diminished attenuation consistent with hepatic steatosis. There is no intrahepatic biliary ducta l dilatation. Gallbladder: Unremarkable. Spleen: Normal in size and attenuation. Pancreas: Unremarkable. Adrenal glands: Unremarkable. Kidneys: The unenhanced kidneys are normal in size. There is a 6 mm obstructing calculus again seen i n the left ureter on image #324. This is unchanged in position from 11/30/2020, located at the level o f L5-S1 and causing moderate left hydroureteronephrosis. There is associated left-sided perinephric a nd periureteric stranding and trace fluid. There are least 5 additional nonobstructing left renal celia culi which measure up to 5 mm. There are least 6 additional nonobstructing right renal calculi which measure up to 10 mm. No right ureteral stone is seen. There is no right-sided hydronephrosis. There i s no evidence of contour deforming renal mass lesion. Abdominal vasculature: The abdominal aorta is normal in course and caliber. Bowel: There are scattered colonic diverticula without CT evidence of acute diverticulitis. Liquid st ool is noted in the colon. The appendix is well-visualized and normal. Peritoneum: There is no intraperitoneal free air or abdominal ascites. Lymphadenopathy: None. Pelvic viscera: The bladder is normal as visualized. The uterus is surgically absent. A 2.8 cm domina nt follicle is again seen in the left ovary. Skeletal structures: No lytic or blastic lesions are seen. IMPRESSION: 1. No significant change from study performed 2 days previously. A 6 mm obstructing calculus is again seen in the mid left ureter as above causing moderate left hydroureteronephrosis. 2. Numerous additional nonobstructing calculi are seen in both kidneys as above. 3. Hepatomegaly and hepatic steatosis. 4. Scattered colonic diverticula without CT evidence of acute diverticulitis. 5. Additional findings as above. ACT 112: Negative or not required by law. Electronically signed by: Miguel Dutton M.D. 12/02/2020 2:26 PM
[2020-12-02 14:40] LABS: Appearance Urine Clear (Clear); Bacteria Urine Automated 1+ (Negative); Bilirubin Urine Negative (Negative); Blood Urine Negative (Negative); Color Urine Dark Yellow; Epithelial Cell Urine Auto >30 /lpf (0-5); Glucose Urine UA Negative (Negative); Ketones Urine 1+ (Negative); Leukocyte Esterase Urine Negative (Negative); Nitrite Urine Negative (Negative); Protein Urine Trace (Negative); RBC Urine Automated 0-4 /hpf (0-4); Specific Gravity Urine 1.024 (1.000-1.030); Urobilinogen Urine Negative (Negative); pH Urine 5.5 (4.5-7.5)
[2020-12-02] MEDS ORDERED: MoRPHine SULFATE 4 MG/ML 1 ML CARP\\VIAL IV STA (15:58)
--- NOTE | 2020-12-02 16:26 | History & Physical Report ---
Date of Service December 02, 2020 Assessment & Plan (1) Left flank pain: Plan: 50-year-old female presenting with ongoing left flank pain, known 6 mm obstructing calculus of the mid left ureter with moderate left hydronephrosis. Patient is afebrile, hemodynamically stable, UA without suggestion of infection. Unable to tolerate oral intake at home. Admit to medical Hydration with LR at 125 mL/h x 2 L Strain urine Continue Flomax 0.4 mg daily -Toradol as needed Pain control with morphine as needed, his nausea control with Zofran as needed Urology consultation appreciated -Elevation of alk phos possibly from vomiting. Will repeat LFTs in the morning (2) Acid reflux disease: Plan: Chronic. Stable. Patient on omeprazole at home we will continue Pepcid here (3) HTN (hypertension): Plan: Blood pressure mildly elevated at 148/96 currently. Pain control as above Continue metoprolol 25 mg p.o. daily Continue to monitor Plan: FENLR at 125 mL/h x 2 L, continue oral magnesium at home dose, heart healthy diet as tolerated with n.p.o. after midnight ProphylaxisSCDs to bilateral lower extremities [place] per discussion with patient Dispositionadmit to medical floor History of Present Illness Chief Complaint: Left flank pain Primary Care Provider: Tara Fontana MD Alma Delia Canchola is a 50-year-old female with history of hypertension, migraine, prior kidney stones presenting with left flank pain. Patient states that she has been having left flank pain for the last 4 to 5 days. The pain is constant in nature with intermittent worsening. She was seen in the emergency room 2 days ago and diagnosed with a 6 mm stone. She was stable during her ER stay and was discharged home with oxycodone, Zofran, and Flomax with instructions to follow-up with her PCP and urology. Patient reports that upon returning home she had worsening nausea as well as vomiting and inability to tolerate p.o. intake. She was unable to take her medications. Her pain on the left flank persisted. She denies fever but has had some chills as well as diarrhea and vomiting. No additional complaints at this time. Allergies Allergy/AdvReac Type Severity Reaction Status Date / Time diclofenac [From Pennsaid] AdvReac Intermediate Nausea Unverified 12/02/20 11:44 Home Medications Medication Instructions Recorded Confirmed Type cetirizine 10 mg tablet (Zyrtec) 10 mg PO DAILY 07/05/18 12/02/20 History multivitamin 1 tab PO DAILY 07/05/18 12/02/20 History promethazine 25 mg tablet 25 mg PO TID PRN 30 Days #90 tab 11/12/19 12/02/20 Rx omeprazole 40 mg capsule,delayed 40 mg PO DAILY PRN 02/09/20 12/02/20 History release metoprolol succinate 25 mg 25 mg PO DAILY #90 tab 04/14/20 12/02/20 Rx tablet,extended release 24 hr cyclobenzaprine 10 mg tablet 10 mg PO BID PRN 30 Days #60 tab 07/27/20 12/02/20 Rx diclofenac sodium 75 mg 75 mg PO BID 30 Days #60 tab 07/27/20 12/02/20 Rx tablet,delayed release topiramate 100 mg tablet 100 mg PO BID #60 tab 07/27/20 12/02/20 Rx fluticasone propionate 50 2 spray INTRANASAL DAILY #48 gm 09/02/20 12/02/20 Rx mcg/actuation nasal spray,suspension (Flonase Allergy Relief) fremanezumab-vfrm 225 mg/1.5 mL 225 mg SUBCUT MONTHLY #1.5 ml 09/28/20 12/02/20 Rx subcutaneous auto-injector (Ajovy) magnesium chloride 64 mg 64 mg PO DAILY #30 tab 09/28/20 12/02/20 Rx (magnesium chloride) tablet,delayed release (Mag 64) sumatriptan succinate 100 mg 100 mg PO .COMPLEX PRN 30 Days #9 09/28/20 12/02/20 Rx tablet (Imitrex) tab escitalopram oxalate 10 mg tablet 10 mg PO DAILY #30 tab 11/23/20 12/02/20 Rx epinastine 0.05 % eye drops 2 drp OPHTHALMIC (EYE) QAM #5 ml 11/28/20 12/02/20 Rx ondansetron 4 mg disintegrating 4 mg PO Q8H PRN #10 tab 11/30/20 12/02/20 Rx tablet oxycodone 5 mg tablet 5 mg PO Q6H PRN #12 tab 11/30/20 12/02/20 Rx tamsulosin 0.4 mg capsule (Flomax) 0.4 mg PO DAILY 7 Days #7 cap 11/30/20 12/02/20 Rx Past Med/Surg History Medical History (Updated 12/02/20 @ 20:22 by Diana Hannah PA-C) Cervicogenic headache Dehiscence of vaginal cuff HTN (hypertension) Lumbar facet joint syndrome Migraine Migraine without aura, not intractable, without status migrainosus Obstructive uropathy Renal colic Status post hysteroscopy UTI (urinary tract infection) Surgical History History of ankle surgery History of endometrial ablation S/P ACL repair S/P section S/P colonoscopy S/P knee surgery Family History Mother Adenosarcoma Unknown Hypertension Nephrolithiasis Father Leukemia Other Family history non-contributory Denies family history of Ovarian cancer Prostate cancer Myocardial infarction Breast cancer Colorectal cancer Social History Smoking Status: Never smoker Second Hand Exposure: No; Hx Alcohol Use: Yes Alcohol type: beer and wine Alcohol Intake Frequency: 2-4 x/Month Hx Substance Use: No Preferred Language: Nigerian Communication Ability: Effective Handyman Required: No Beliefs That Will Affect Care: None marital status: Legally Current Living Situation: Alone current occupational status: employed 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 [employer] Other Information That Helps Us Care for You: No Feels Safe at Home: Yes Safety Concerns: Feels Safe At This Time Childhood Exposure to Second-Hand Smoke: No Dental Care, Regularly: Yes Physical Activity Frequency: Does not Exercise Seatbelt Use: always Sunscreen Use: No Assistive Devices: None Review of Systems Review of Systems: All systems reviewed & are unremarkable except as noted in HPI & below + Left flank pain + Left lower quadrant abdominal pain + Chills + Nausea + Diarrhea Physical Exam Physical Exam: General: patient resting comfortably, NAD, appears uncomfortable, AA&O x 4 Skin: warm, dry, intact, no rashes or lesions HEENT: NC/AT, PERRL, EOMI, anicteric sclera, conjunctiva without injection, external ear normal to inspection and nontender, nares patent, moist mucus membranes, dentition intact, no oropharyngeal lesions, neck supple, trachea midline, no LAD, no thyromegaly, no JVD Heart: +S1/S2, regular, no m/r/g Lungs: equal air entry bilaterally, no rales/rhonchi/wheezes Abd: +BS, soft, ND, tenderness in the left lower quadrant without rebound/guarding/peritoneal signs, no masses/organomegaly/ascites Ext: warm, 2+ pulses in UE/LE bilaterally, no clubbing/cyanosis or edema Neuro: nonfocal, patient AA&O x 4, speech intact, no facial droop, moving all extremities on command with equal strength 5/5 Results & Data Results & Data ([facility]) Vital Signs (Past 12 Hours) Vital Signs Temp Pulse Pulse Resp BP BP Pulse Ox 12/02/20 14:00 95 H 15 96 12/02/20 11:39 99 H 16 12/02/20 11:24 37.2 C 18 161/110 H 96 12/02/20 11:07 36.9 C 123 H 18 144/89 H 96 Laboratory Results Laboratory Results WBC 7.24 K/uL (4.8-10.8) 12/02/20 11:30 RBC 5.09 M/uL (4.2-5.4) 12/02/20 11:30 Hgb 15.6 g/dL (12.0-16.0) 12/02/20 11:30 Hct 46.2 % (37-47) 12/02/20 11:30 MCV 90.8 fL (80-100) 12/02/20 11:30 MCH 30.6 pg (25-34) 12/02/20 11:30 MCHC 33.8 g/dL (32-36) 12/02/20 11:30 RDW Std Deviation 43.7 fL (36.4-46.3) 12/02/20 11:30 RDW Coeff of Faustino 13.3 % (11.5-14.5) 12/02/20 11:30 Plt Count 292 K/uL (130-400) 12/02/20 11:30 MPV 9.3 fL (7.4-10.4) 12/02/20 11:30 Immature Gran % (Auto) 0.3 % 12/02/20 11:30 Neut % (Auto) 77.6 % 12/02/20 11:30 Lymph % (Auto) 11.2 % 12/02/20 11:30 [place] % (Auto) 9.0 % 12/02/20 11:30 Eos % (Auto) 1.8 % 12/02/20 11:30 Baso % (Auto) 0.1 % 12/02/20 11:30 Neut # (Auto) 5.62 K/uL (1.4-6.5) 12/02/20 11:30 Lymph # (Auto) 0.81 K/uL (1.2-3.4) L 12/02/20 11:30 [place] # (Auto) 0.65 K/uL (0.11-0.59) H 12/02/20 11:30 Eos # (Auto) 0.13 K/uL (0-0.5) 12/02/20 11:30 Baso # (Auto) 0.01 K/uL (0-0.2) 12/02/20 11:30 Immature Gran # (Auto) 0.02 K/uL (0.00-0.02) 12/02/20 11:30 Sodium 140 mmol/L (136-145) 12/02/20 11:30 Potassium TNP 12/02/20 11:30 Chloride 111 mmol/L (98-107) H 12/02/20 11:30 Carbon Dioxide 23 mmol/L (21-32) 12/02/20 11:30 Anion Gap 6.0 (3-11) 12/02/20 11:30 BUN 21 mg/dl (7-18) H 12/02/20 11:30 Creatinine 1.26 mg/dl (0.6-1.2) H 12/02/20 11:30 Est Cr Clr Drug Dosing 59.8 ml/min 12/02/20 11:30 Est GFR ( Amer) 57.9 ml/min 12/02/20 11:30 Est GFR (Non-Af Amer) 50.0 ml/min 12/02/20 11:30 BUN/Creatinine Ratio 16.9 (10-20) 12/02/20 11:30 Glucose 137 mg/dl (70-99) H 12/02/20 11:30 Calcium 8.4 mg/dl (8.5-10.1) L 12/02/20 11:30 Magnesium 1.9 mg/dl (1.8-2.4) 12/02/20 21:32 Total Bilirubin 0.5 mg/dl (0.2-1) 12/02/20 11:30 AST TNP 12/02/20 11:30 ALT 33 U/L (12-78) 12/02/20 11:30 Alkaline Phosphatase 121 U/L (45-117) H 12/02/20 11:30 Total Protein 7.7 gm/dl (6.4-8.2) 12/02/20 11:30 Albumin 3.2 gm/dl (3.4-5.0) L 12/02/20 11:30 Globulin 4.5 gm/dl (2.5-4.0) H 12/02/20 11:30 Albumin/Globulin Ratio 0.7 (0.9-2) L 12/02/20 11:30 Urine Color Dark Yellow 12/02/20 14:00 Urine Appearance Clear (Clear) 12/02/20 14:00 Urine pH 5.5 (4.5-7.5) 12/02/20 14:00 Ur Specific [place] 1.024 (1.000-1.030) 12/02/20 14:00 Urine Protein Trace (Negative) H 12/02/20 14:00 Urine Glucose (UA) Negative (Negative) 12/02/20 14:00 Urine Ketones 1+ (Negative) H 12/02/20 14:00 Urine Blood Negative (Negative) 12/02/20 14:00 Urine Nitrite Negative (Negative) 12/02/20 14:00 Urine Bilirubin Negative (Negative) 12/02/20 14:00 Urine Urobilinogen Negative (Negative) 12/02/20 14:00 Ur Leukocyte Esterase Negative (Negative) 12/02/20 14:00 Urine WBC (Auto) 10-30 /hpf (0-5) H 12/02/20 14:00 Urine RBC (Auto) 0-4 /hpf (0-4) 12/02/20 14:00 U Hyaline Cast (Auto) 5-10 /lpf (0-5) H 12/02/20 14:00 U Epithel Cells (Auto) >30 /lpf (0-5) H 12/02/20 14:00 Urine Bacteria (Auto) 1+ (Negative) H 12/02/20 14:00 COVID-19 Eval Order Covid19 at [facility] 12/02/20 14:50 SARS-CoV-2 (PCR) NEGATIVE (Negative) 12/02/20 14:50 Impressions KUB X-Ray 12/02/20 11:40 XR KUB/Abdomen 1 view CLINICAL HISTORY: left flank pain, kidney stone COMPARISON STUDY: November 30, 2020 FINDINGS: Multiple gas-filled loops of bowel are dilated measuring up to 7.8 cm in diameter. No significant bowel loops dilatation was seen on prior study Gas-filled loop of bowel is seen projecting to pelvic region. Multiple calcifications are seen within bilateral hemiabdomen and may or may not represent nephrolithiasis, stable since prior, largest is seen on the right and measured 1.6 cm. IMPRESSION: 1. Interval dilatation of loops of large bowel, might represent ileus. Development of bowel obstruction cannot be completely ruled out. Please correlate above-mentioned findings with clinical presentation. 2. Stable multiple calculi within the abdomen, unchanged since recent prior study performed on December 01, 2019. ACT 112: Negative or not required by law. The above report was generated using voice recognition software. It may contain grammatical, syntax or spelling errors. Electronically signed by: Jocelin Stevenson DO 12/02/2020 12:45 PM Abdomen/Pelvis CT 12/02/20 13:34 CT SCAN OF THE ABDOMEN AND PELVIS WITHOUT IV CONTRAST CLINICAL HISTORY: Left flank pain. Known left ureteral calculus. COMPARISON STUDY: Abdominal CT dated 11/30/2020. TECHNIQUE: CT scan of the abdomen and pelvis is performed from the lung bases to the proximal femora. Images are reviewed in the axial, sagittal, and coronal planes. IV contrast was not administered for this examination. A dose lowering technique was utilized adhering to the principles of ALARA. CT DOSE: 869.47 mGy.cm FINDINGS: Lung bases: The heart is normal in size and without pericardial effusion. There are scattered coronary artery calcifications. The lung bases are clear noting bibasilar scarring/atelectasis. Liver: The unenhanced liver is enlarged, measuring over 21 cm in length. The liver demonstrates diffusely diminished attenuation consistent with hepatic steatosis. There is no intrahepatic biliary ductal dilatation. Gallbladder: Unremarkable. Spleen: Normal in size and attenuation. Pancreas: Unremarkable. Adrenal glands: Unremarkable. Kidneys: The unenhanced kidneys are normal in size. There is a 6 mm obstructing calculus again seen in the left ureter on image #324. This is unchanged in position from 11/30/2020, located at the level of L5-S1 and causing moderate left hydroureteronephrosis. There is associated left-sided perinephric and periureteric stranding and trace fluid. There are least 5 additional nonobstructing left renal calculi which measure up to 5 mm. There are least 6 additional nonobstructing right renal calculi which measure up to 10 mm. No right ureteral stone is seen. There is no right-sided hydronephrosis. There is no evidence of contour deforming renal mass lesion. Abdominal vasculature: The abdominal aorta is normal in course and caliber. Bowel: There are scattered colonic diverticula without CT evidence of acute diverticulitis. Liquid stool is noted in the colon. The appendix is well- visualized and normal. Peritoneum: There is no intraperitoneal free air or abdominal ascites. Lymphadenopathy: None. Pelvic viscera: The bladder is normal as visualized. The uterus is surgically absent. A 2.8 cm dominant follicle is again seen in the left ovary. Skeletal structures: No lytic or blastic lesions are seen. IMPRESSION: 1. No significant change from study performed 2 days previously. A 6 mm obstructing calculus is again seen in the mid left ureter as above causing mode rate left hydroureteronephrosis. 2. Numerous additional nonobstructing calculi are seen in both kidneys as above. 3. Hepatomegaly and hepatic steatosis. 4. Scattered colonic diverticula without CT evidence of acute diverticulitis. 5. Additional findings as above. ACT 112: Negative or not required by law. Electronically signed by: Miguel Dutton M.D. 12/02/2020 2:26 PM Code Status & VTE Plan VTE Prophylaxis Plan VTE Prophylaxis will be ordered: Yes PG Care Time/CCT Total # of Minutes Spent Total Time Spent with Patient: Total time spent is greater than 50% in coordination of care (as documented) at patient's floor/unit and/or counseling patient: Coding Level of Care Code 58310 Initial Inpt Care Lvl 2 Diagnoses Left flank pain R10.9 Acid reflux disease K21.9 HTN (hypertension) I10
[2020-12-02] MEDS ORDERED: ONDANSETRON INJ 2 MG/ML 2 ML VIAL IV PRN (19:25)
[2020-12-02] MEDS ORDERED: CYCLOBENZAPRINE HCL 10 MG TAB PO PRN (19:48)
[2020-12-02] MEDS: LACTATED RINGER'S 1,000 ML IV SCH (19:52)
[2020-12-02] MEDS: TAMSULOSIN HCL 0.4 MG CAP PO SCH (20:05)
[2020-12-02] MEDS: MoRPHine SULFATE 2 MG/ML CARP IV PRN (20:37)
[2020-12-02] MEDS: TOPIRAMATE 100 MG TAB PO SCH (20:41)
[2020-12-03] MEDS ORDERED: SUMAtriptan succinate 100 MG TAB PO PRN (02:25)
[2020-12-03] MEDS: LACTATED RINGER'S 1,000 ML IV SCH (04:03)
[2020-12-03 07:43] LABS: Albumin Level 2.3 gm/dl (3.4-5.0); BUN Creatinine Ratio 13.5 (10-20); Bilirubin Direct 0.1 mg/dl (0-0.2); Bilirubin,Total 0.3 mg/dl (0.2-1); Calcium 7.7 mg/dl (8.5-10.1); Est GFR (African American) 76.6 ml/min; Est GFR (Non-African American) 66.1 ml/min; Potassium 3.5 mmol/L (3.5-5.1); Total Protein 5.7 gm/dl (6.4-8.2)
[2020-12-03] MEDS: KETOROLAC TROMETHAMINE 15 MG/ML VIAL IV PRN ×3 (08:03→19:59)
[2020-12-03] MEDS: ESCITALOPRAM OXALATE 10 MG TAB PO SCH (08:06)
[2020-12-03] MEDS: TOPIRAMATE 100 MG TAB PO SCH ×2 (08:06→19:56)
[2020-12-03] MEDS: CETIRIZINE HCL 10 MG TABLET PO SCH (08:06)
[2020-12-03] MEDS: MAGNESIUM CHLORIDE 64MG DELAYED REL TAB PO SCH (08:06)
[2020-12-03] MEDS: TAMSULOSIN HCL 0.4 MG CAP PO SCH (08:06)
[2020-12-03] MEDS: METOPROLOL SUCC 25MG EXT REL TAB PO SCH (08:07)
[2020-12-03] MEDS: FLUTICASONE PROPIONATE NA SPR 16 GM BTL SCH (08:07)
[2020-12-03] MEDS ORDERED: FAMOTIDINE 40 MG TABLET PO SCH (09:00)
[2020-12-03 09:27] LABS: Eosinophils # (auto) 0.19 K/uL (0-0.5); Eosinophils % (auto) 3.4 %; Hematocrit (blood only) 37.6 % (37-47); Hemoglobin 12.5 g/dL (12.0-16.0); Immature Granulocytes # (auto) 0.01 K/uL (0.00-0.02); Immature Granulocytes % (auto) 0.2 %; Lymphocytes # (auto) 1.22 K/uL (1.2-3.4); Lymphocytes % (auto) 21.7 %; Mean Corpuscular Hemoglobin 29.8 pg (25-34); Mean Corpuscular Hgb Conc 33.2 g/dL (32-36); Mean Corpuscular Volume 89.7 fL (80-100); Mean Platelet Volume 8.9 fL (7.4-10.4); Monocytes # (auto) 0.65 K/uL (0.11-0.59); Monocytes % (auto) 11.5 %; Neutrophils # (auto) 3.56 K/uL (1.4-6.5); Neutrophils % (auto) 63.2 %; Platelet Count 242 K/uL (130-400); RDW Coefficient of Variation 13.4 % (11.5-14.5); RDW Standard Deviation 43.2 fL (36.4-46.3); Red Blood Count 4.19 M/uL (4.2-5.4); White Blood Count 5.63 K/uL (4.8-10.8)
--- NOTE | 2020-12-03 10:54 | Urology Consultation ---
Date of Consultation December 03, 2020 Assessment & Plan (1) Left ureteral calculus: (2) Left flank pain: Patient to the OR tomorrow AM for cystoscopy, left ureteral stent. I explained that she will need ESWL vs ureteroscopy in the future to remove the stone as an outpatient. Patient is agreeable. Patient may eat today. NPO after midnight. History of Present Illness Reason for Consultation: Left obstructing ureteral stone Attending Physician: Jimmy Bauman MD History of Present Illness The patient is a 50 yo female with a history of multiple stone passages in the past. She presented twice in the past week with a left 6 mm proximal stone to the ER. She was admitted last night. She reports that she has never had surgery for stones. She is unaware of the stone composition. She is otherwise healthy except HTN. She reports left flank pain, N/V. She reports feeling better since admission on pain meds. No F/C. No CP or SOB. Allergies Allergy/AdvReac Type Severity Reaction Status Date / Time diclofenac [From Pennsaid] AdvReac Intermediate Nausea Unverified 12/02/20 11:44 Home Medications Medication Instructions Recorded Confirmed Type cetirizine 10 mg tablet (Zyrtec) 10 mg PO DAILY 07/05/18 12/02/20 History multivitamin 1 tab PO DAILY 07/05/18 12/02/20 History promethazine 25 mg tablet 25 mg PO TID PRN 30 Days #90 tab 11/12/19 12/02/20 Rx omeprazole 40 mg capsule,delayed 40 mg PO DAILY PRN 02/09/20 12/02/20 History release metoprolol succinate 25 mg 25 mg PO DAILY #90 tab 04/14/20 12/02/20 Rx tablet,extended release 24 hr cyclobenzaprine 10 mg tablet 10 mg PO BID PRN 30 Days #60 tab 07/27/20 12/02/20 Rx diclofenac sodium 75 mg 75 mg PO BID 30 Days #60 tab 07/27/20 12/02/20 Rx tablet,delayed release topiramate 100 mg tablet 100 mg PO BID #60 tab 07/27/20 12/02/20 Rx fluticasone propionate 50 2 spray INTRANASAL DAILY #48 gm 09/02/20 12/02/20 Rx mcg/actuation nasal spray,suspension (Flonase Allergy Relief) fremanezumab-rm 225 mg/1.5 mL 225 mg SUBCUT MONTHLY #1.5 ml 09/28/20 12/02/20 Rx subcutaneous auto-injector (Ajovy) magnesium chloride 64 mg 64 mg PO DAILY #30 tab 09/28/20 12/02/20 Rx (magnesium chloride) tablet,delayed release (Mag 64) sumatriptan succinate 100 mg 100 mg PO .COMPLEX PRN 30 Days #9 09/28/20 12/02/20 Rx tablet (Imitrex) tab escitalopram oxalate 10 mg tablet 10 mg PO DAILY #30 tab 11/23/20 12/02/20 Rx epinastine 0.05 % eye drops 2 drp OPHTHALMIC (EYE) QAM #5 ml 11/28/20 12/02/20 Rx ondansetron 4 mg disintegrating 4 mg PO Q8H PRN #10 tab 11/30/20 12/02/20 Rx tablet oxycodone 5 mg tablet 5 mg PO Q6H PRN #12 tab 11/30/20 12/02/20 Rx tamsulosin 0.4 mg capsule (Flomax) 0.4 mg PO DAILY 7 Days #7 cap 11/30/20 12/02/20 Rx Patient History Medical History Cervicogenic headache Dehiscence of vaginal cuff HTN (hypertension) Lumbar facet joint syndrome Migraine Migraine without aura, not intractable, without status migrainosus Obstructive uropathy Renal colic Status post hysteroscopy UTI (urinary tract infection) Surgical History History of ankle surgery History of endometrial ablation S/P ACL repair S/P section S/P colonoscopy S/P knee surgery Family History Mother Adenosarcoma Unknown Hypertension Nephrolithiasis Father Leukemia Other Family history non-contributory Denies family history of Ovarian cancer Prostate cancer Myocardial infarction Breast cancer Colorectal cancer Social History Smoking Status: Never smoker Second Hand Exposure: No; Hx Alcohol Use: Yes Alcohol type: beer and wine Alcohol Intake Frequency: 2-4 x/Month Hx Substance Use: No Preferred Language: Nepalese Communication Ability: Effective 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 Beliefs That Will Affect Care: None marital status: Legally Current Living Situation: Alone current occupational status: employed 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 [employer] Other Information That Helps Us Care for You: No Feels Safe at Home: Yes Safety Concerns: Feels Safe At This Time Childhood Exposure to Second-Hand Smoke: No Dental Care, Regularly: Yes Physical Activity Frequency: Does not Exercise Seatbelt Use: always Sunscreen Use: No Assistive Devices: None Review of Systems Review of Systems: ROS completed - see HPI otherwise negative Physical Exam Physical Exam: AVSS NAD nonlabored regular rhythm soft, + tenderness AO x 3 No le edema Results & Data ([facility]) Vital Signs (Past 12 Hours) Vital Signs Temp Pulse Resp BP Pulse Ox 12/03/20 07:53 36.9 C 90 16 125/82 92 12/02/20 23:59 37.0 C 107 H 17 133/87 92 Laboratory Results Character Artist mildly elevated. WBC within normal limits Diagnostic Findings CT with bilateral nonobstructing renal stone - left 6mm proximal ureteral stone with hydronephrosis PG Care Time/CCT Total # of Minutes Spent Total Time Spent with Patient: Total time spent is greater than 50% in coordination of care (as documented) at patient's floor/unit and/or counseling patient: [place] [address] Inpt Consult Level 4 Patient Type New History Detailed Exam Detailed Medical Decision Making Moderate Complexity Diagnoses Left ureteral calculus N20.1 Left flank pain R10.9 Time Spent (min) 30
--- NOTE | 2020-12-03 11:56 | Hospitalist Progress Note ---
Date of Service December 03, 2020 Assessment & Plan (1) Left flank pain: Plan: Left ureteric colic, obstructive uropathy-urology input appreciated; noted plans for OR tomorrow (2) Acid reflux disease: Plan: PPI (3) HTN (hypertension): Plan: Blood pressure mildly elevated at 148/96 currently. Pain control as above Continue metoprolol 25 mg p.o. daily Continue to monitor (4) UTI (urinary tract infection): Plan: Possible given chills and pyuriathough not definite benefit of doubt and Rocephin for now pending culture Plan: Looks hypovolemiccontinue volume; reports stones calcium oxalate (she said oxalate probably calcium oxalate); should have 24-hour urine calcium and oxalate at some point and might benefit from thiazide; noted fatty liveroutpatient GI; at risk for Leon (high alk phos may have been related) Admission and Anticipated Discharge Date Admission Date: December 02, 2020 Subjective Follow-up of left flank painstill in some pain; reports some chills but did not document fever Physical Exam Physical Exam: Constitutional and general: No acute distress, looks biologic age Head and face: No puffiness, atraumatic Eyes: No scleral icterus, extraocular movements normal Neck: Supple, no JVD Musculoskeletal: No acute joint swelling, no bony abnormalities Skin/dermatologic/integument: No rash, no purpura Hematologic and lymphatic: pallor none, no petechia Gastrointestinal/abdomen: Nondistended, soft, nonacute Neurologic: Cranial nerves intact, nonfocal Psychiatry: Awake, alert, pleasant, communicative Cardiovascular: Heart rhythm regular, no rub, no murmur, no gallop Respiratory: Chest movements equal, no use of accessory muscles, no adventitious sounds Extremities: No edema, no cyanosis Results & Data Results & Data ([facility]) Vital Signs (Past 12 Hours) Vital Signs Temp Pulse Resp BP Pulse Ox 12/03/20 07:53 36.9 C 90 16 125/82 92 12/02/20 23:59 37.0 C 107 H 17 133/87 92 Laboratory Results Laboratory Results - last 24 hr 12/02/20 12/02/20 12/02/20 11:30 11:30 14:00 WBC 7.24 RBC 5.09 Hgb 15.6 Hct 46.2 MCV 90.8 MCH 30.6 MCHC 33.8 RDW Std Deviation 43.7 RDW Coeff of Faustino 13.3 Plt Count 292 MPV 9.3 Immature Gran % (Auto) 0.3 Neut % (Auto) 77.6 Lymph % (Auto) 11.2 [place] % (Auto) 9.0 Eos % (Auto) 1.8 Baso % (Auto) 0.1 Neut # (Auto) 5.62 Lymph # (Auto) 0.81 L [place] # (Auto) 0.65 H Eos # (Auto) 0.13 Baso # (Auto) 0.01 Immature Gran # (Auto) 0.02 Sodium 140 Potassium TNP Chloride 111 H Carbon Dioxide 23 Anion Gap 6.0 BUN 21 H Creatinine 1.26 H Est Cr Clr Drug Dosing 59.8 Est GFR ( Amer) 57.9 Est GFR (Non-Af Amer) 50.0 BUN/Creatinine Ratio 16.9 Glucose 137 H Calcium 8.4 L Magnesium Total Bilirubin 0.5 Direct Bilirubin AST TNP ALT 33 Alkaline Phosphatase 121 H Total Protein 7.7 Albumin 3.2 L Globulin 4.5 H Albumin/Globulin Ratio 0.7 L Urine Color Dark Yellow Urine Appearance Clear Urine pH 5.5 Ur Specific [place] 1.024 Urine Protein Trace H Urine Glucose (UA) Negative Urine Ketones 1+ H Urine Blood Negative Urine Nitrite Negative Urine Bilirubin Negative Urine Urobilinogen Negative Ur Leukocyte Esterase Negative Urine WBC (Auto) 10-30 H Urine RBC (Auto) 0-4 U Hyaline Cast (Auto) 5-10 H U Epithel Cells (Auto) >30 H Urine Bacteria (Auto) 1+ H COVID-19 Eval Order SARS-CoV-2 (PCR) 12/02/20 12/02/20 12/02/20 14:50 14:50 20:12 WBC RBC Hgb Hct MCV MCH MCHC RDW Std Deviation RDW Coeff of Faustino Plt Count MPV Immature Gran % (Auto) Neut % (Auto) Lymph % (Auto) [place] % (Auto) Eos % (Auto) Baso % (Auto) Neut # (Auto) Lymph # (Auto) [place] # (Auto) Eos # (Auto) Baso # (Auto) Immature Gran # (Auto) Sodium Potassium Chloride Carbon Dioxide Anion Gap BUN Creatinine Est Cr Clr Drug Dosing Est GFR ( Amer) Est GFR (Non-Af Amer) BUN/Creatinine Ratio Glucose Calcium Magnesium Cancelled Total Bilirubin Direct Bilirubin AST ALT Alkaline Phosphatase Total Protein Albumin Globulin Albumin/Globulin Ratio Urine Color Urine Appearance Urine pH Ur Specific [place] Urine Protein Urine Glucose (UA) Urine Ketones Urine Blood Urine Nitrite Urine Bilirubin Urine Urobilinogen Ur Leukocyte Esterase Urine WBC (Auto) Urine RBC (Auto) U Hyaline Cast (Auto) U Epithel Cells (Auto) Urine Bacteria (Auto) COVID-19 Eval Order Covid19 at [facility] SARS-CoV-2 (PCR) NEGATIVE 12/02/20 12/03/20 12/03/20 21:32 06:49 06:49 WBC 5.63 RBC 4.19 L Hgb 12.5 D Hct 37.6 MCV 89.7 MCH 29.8 MCHC 33.2 RDW Std Deviation 43.2 RDW Coeff of Faustino 13.4 Plt Count 242 MPV 8.9 Immature Gran % (Auto) 0.2 Neut % (Auto) 63.2 Lymph % (Auto) 21.7 [place] % (Auto) 11.5 Eos % (Auto) 3.4 Baso % (Auto) 0.0 Neut # (Auto) 3.56 Lymph # (Auto) 1.22 [place] # (Auto) 0.65 H Eos # (Auto) 0.19 Baso # (Auto) 0.00 Immature Gran # (Auto) 0.01 Sodium 138 Potassium 3.5 Chloride 111 H Carbon Dioxide 24 Anion Gap 3.0 BUN 13 Creatinine 1.00 Est Cr Clr Drug Dosing 76.0 Est GFR ( Amer) 76.6 Est GFR (Non-Af Amer) 66.1 BUN/Creatinine Ratio 13.5 Glucose 96 Calcium 7.7 L Magnesium 1.9 Total Bilirubin 0.3 Direct Bilirubin 0.1 AST 8 L ALT 22 Alkaline Phosphatase 97 Total Protein 5.7 L D Albumin 2.3 L Globulin Albumin/Globulin Ratio Urine Color Urine Appearance Urine pH Ur Specific [place] Urine Protein Urine Glucose (UA) Urine Ketones Urine Blood Urine Nitrite Urine Bilirubin Urine Urobilinogen Ur Leukocyte Esterase Urine WBC (Auto) Urine RBC (Auto) U Hyaline Cast (Auto) U Epithel Cells (Auto) Urine Bacteria (Auto) COVID-19 Eval Order SARS-CoV-2 (PCR) Diagnostic Findings KUB X-Ray 12/02/20 11:40 XR KUB/Abdomen 1 view CLINICAL HISTORY: left flank pain, kidney stone COMPARISON STUDY: November 30, 2020 FINDINGS: Multiple gas-filled loops of bowel are dilated measuring up to 7.8 cm in diameter. No significant bowel loops dilatation was seen on prior study Gas-filled loop of bowel is seen projecting to pelvic region. Multiple calcifications are seen within bilateral hemiabdomen and may or may not represent nephrolithiasis, stable since prior, largest is seen on the right and measured 1.6 cm. IMPRESSION: 1. Interval dilatation of loops of large bowel, might represent ileus. Development of bowel obstruction cannot be completely ruled out. Please correlate above-mentioned findings with clinical presentation. 2. Stable multiple calculi within the abdomen, unchanged since recent prior study performed on December 01, 2019. ACT 112: Negative or not required by law. The above report was generated using voice recognition software. It may contain grammatical, syntax or spelling errors. Electronically signed by: Jocelin Stevenson DO 12/02/2020 12:45 PM Abdomen/Pelvis CT 12/02/20 13:34 CT SCAN OF THE ABDOMEN AND PELVIS WITHOUT IV CONTRAST CLINICAL HISTORY: Left flank pain. Known left ureteral calculus. COMPARISON STUDY: Abdominal CT dated 11/30/2020. TECHNIQUE: CT scan of the abdomen and pelvis is performed from the lung bases to the proximal femora. Images are reviewed in the axial, sagittal, and coronal planes. IV contrast was not administered for this examination. A dose lowering technique was utilized adhering to the principles of ALARA. CT DOSE: 869.47 mGy.cm FINDINGS: Lung bases: The heart is normal in size and without pericardial effusion. There are scattered coronary artery calcifications. The lung bases are clear noting bibasilar scarring/atelectasis. Liver: The unenhanced liver is enlarged, measuring over 21 cm in length. The liver demonstrates diffusely diminished attenuation consistent with hepatic steatosis. There is no intrahepatic biliary ductal dilatation. Gallbladder: Unremarkable. Spleen: Normal in size and attenuation. Pancreas: Unremarkable. Adrenal glands: Unremarkable. Kidneys: The unenhanced kidneys are normal in size. There is a 6 mm obstructing calculus again seen in the left ureter on image #324. This is unchanged in position from 11/30/2020, located at the level of L5-S1 and causing moderate left hydroureteronephrosis. There is associated left-sided perinephric and periureteric stranding and trace fluid. There are least 5 additional nonobstructing left renal calculi which measure up to 5 mm. There are least 6 additional nonobstructing right renal calculi which measure up to 10 mm. No right ureteral stone is seen. There is no right-sided hydronephrosis. There is no evidence of contour deforming renal mass lesion. Abdominal vasculature: The abdominal aorta is normal in course and caliber. Bowel: There are scattered colonic diverticula without CT evidence of acute diverticulitis. Liquid stool is noted in the colon. The appendix is well-vis ualized and normal. Peritoneum: There is no intraperitoneal free air or abdominal ascites. Lymphadenopathy: None. Pelvic viscera: The bladder is normal as visualized. The uterus is surgically ab sent. A 2.8 cm dominant follicle is again seen in the left ovary. Skeletal structures: No lytic or blastic lesions are seen. IMPRESSION: 1. No significant change from study performed 2 days previously. A 6 mm obstructing calculus is again seen in the mid left ureter as above causing moderate left hydroureteronephrosis. 2. Numerous additional nonobstructing calculi are seen in both kidneys as above. 3. Hepatomegaly and hepatic steatosis. 4. Scattered colonic diverticula without CT evidence of acute diverticulitis. 5. Additional findings as above. ACT 112: Negative or not required by law. Electronically signed by: Miguel Dutton M.D. 12/02/2020 2:26 PM PG Care Time/CCT Total # of Minutes Spent Total Time Spent with Patient: Total time spent is greater than 50% in coordination of care (as documented) at patient's floor/unit and/or counseling patient: Coding Level of Care Code 34617 Subseq Hosp Care Lvl 3 Diagnoses Left flank pain R10.9 Acid reflux disease K21.9 HTN (hypertension) I10 UTI (urinary tract infection) N39.0
[2020-12-03] MEDS ORDERED: cefTRIAXone SODIUM 1,000 MG in DEXTROSE 5% 50 ML IV SCH (12:00)
[2020-12-03] MEDS: SODIUM CHLORIDE 0.9% 1000ML 1,000 ML IV SCH ×2 (12:58→22:36)
[2020-12-03] MEDS: cefTRIAXone SODIUM 2,000 MG in DEXTROSE 5% 50 ML IV SCH (12:59)
[2020-12-03] MEDS: PANTOprazole 40 MG TAB PO SCH (12:59)
[2020-12-04] MEDS: MoRPHine SULFATE 2 MG/ML CARP IV PRN ×2 (01:03→23:19)
[2020-12-04] MEDS: KETOROLAC TROMETHAMINE 15 MG/ML VIAL IV PRN ×3 (02:58→20:54)
[2020-12-04] MEDS ORDERED: ONDANSETRON INJ 2 MG/ML 2 ML VIAL ONE (07:02)
[2020-12-04] MEDS ORDERED: LIDOCAINE 2% 2 ML VIAL/AMP(20MG/ML) INFIL ONE (07:02)
[2020-12-04] MEDS ORDERED: MIDAZOLAM HCL 1 MG/ML 2ML VIAL ONE (07:02)
[2020-12-04] MEDS ORDERED: fentaNYL citrate 100 MCG/2 ML VIAL ONE (07:02)
[2020-12-04] MEDS ORDERED: PROPOFOL IV EMULSION 10 MG/ML 20 ML VIAL IV ONE (07:02)
--- NOTE | 2020-12-04 07:08 | Anesthesiology Consultation ---
Date of Service December 04, 2020 Assessment & Plan (1) Encounter for pre-operative examination: Chart Review Chart Review: Acceptable Risk for Surgery and Patient NOT seen in Pre Admission Testing Consults Requested none History Surgery Operation Date: 12/04/20 07:30 Proposed Procedures p Cystoscopy - Aline Galeano MD s Ureteral Stent Insertion/Removal(Left) - Aline Galeano MD Height/Weight Height: 5 ft 4 in Weight: 94.8 kg Allergies Allergy/AdvReac Type Severity Reaction Status Date / Time diclofenac [From [place]] AdvReac Intermediate Nausea Unverified 12/02/20 11:44 Medications Home Medications Medication Instructions Recorded Confirmed Last Taken cetirizine 10 mg tablet (Zyrtec) 10 mg PO DAILY 07/05/18 12/02/20 11/30/20 multivitamin 1 tab PO DAILY 07/05/18 12/02/20 11/30/20 promethazine 25 mg tablet 25 mg PO TID PRN 30 Days #90 tab 11/12/19 12/02/20 Unknown omeprazole 40 mg capsule,delayed 40 mg PO DAILY PRN 02/09/20 12/02/20 11/30/20 release metoprolol succinate 25 mg 25 mg PO DAILY #90 tab 04/14/20 12/02/20 11/30/20 tablet,extended release 24 hr cyclobenzaprine 10 mg tablet 10 mg PO BID PRN 30 Days #60 tab 07/27/20 12/02/20 11/30/20 diclofenac sodium 75 mg 75 mg PO BID 30 Days #60 tab 07/27/20 12/02/20 12/01/20 tablet,delayed release topiramate 100 mg tablet 100 mg PO BID #60 tab 07/27/20 12/02/20 11/30/20 fluticasone propionate 50 2 spray INTRANASAL DAILY #48 gm 09/02/20 12/02/20 11/30/20 mcg/actuation nasal spray,suspension (Flonase Allergy Relief) fremanezumab-vfrm 225 mg/1.5 mL 225 mg SUBCUT MONTHLY #1.5 ml 09/28/20 12/02/20 11/28/20 subcutaneous auto-injector (Ajovy) magnesium chloride 64 mg 64 mg PO DAILY #30 tab 09/28/20 12/02/20 11/30/20 (magnesium chloride) tablet,delayed release (Mag 64) sumatriptan succinate 100 mg 100 mg PO .COMPLEX PRN 30 Days #9 09/28/20 12/02/20 Unknown tablet (Imitrex) tab escitalopram oxalate 10 mg tablet 10 mg PO DAILY #30 tab 11/23/20 12/02/20 12/01/20 epinastine 0.05 % eye drops 2 drp OPHTHALMIC (EYE) QAM #5 ml 11/28/20 12/02/20 12/02/20 ondansetron 4 mg disintegrating 4 mg PO Q8H PRN #10 tab 11/30/20 12/02/20 Unknown tablet oxycodone 5 mg tablet 5 mg PO Q6H PRN #12 tab 11/30/20 12/02/20 Unknown tamsulosin 0.4 mg capsule (Flomax) 0.4 mg PO DAILY 7 Days #7 cap 11/30/20 12/02/20 11/30/20 Active Medications Generic Name Dose Route Start Last Admin Trade Name Freq PRN Reason Stop Dose Admin Cetirizine HCl 10 mg 12/03/20 09:00 12/03/20 08:06 Cetirizine Hcl 10 Mg Tablet PO 01/02/21 08:59 10 mg DAILY JAKE Administration Escitalopram Oxalate 10 mg 12/03/20 09:00 12/03/20 08:06 Escitalopram Oxalate 10 Mg Tab PO 01/02/21 08:59 10 mg DAILY JAKE Administration Fluticasone Propionate 2 sprays 12/03/20 09:00 12/03/20 08:07 Fluticasone Propionate Na Spr 16 Gm Btl NA 01/02/21 08:59 2 sprays DAILY JAKE Administration Sodium Chloride 1,000 mls @ 100 mls/hr 12/03/20 12:30 12/03/20 22:36 Nss 1000ml IV 01/02/21 12:29 100 mls/hr .Q10H JAKE Administration Ceftriaxone Sodium 2,000 mg/ 70 mls @ 140 mls/hr 12/03/20 12:30 12/03/20 13:36 Dextrose IV 12/13/20 12:29 Infused Q24H JAKE Infusion Ketorolac Tromethamine 15 mg 12/02/20 19:25 12/04/20 02:58 Ketorolac Tromethamine 15 Mg/Ml Vial IV 12/07/20 19:24 15 mg Q6H PRN Administration Pain Magnesium Chloride 64 mg 12/03/20 09:00 12/03/20 08:06 Magnesium Chloride 64mg Delayed Rel Tab PO 01/02/21 08:59 64 mg DAILY JAKE Administration Metoprolol Succinate 25 mg 12/03/20 09:00 12/03/20 08:07 Metoprolol Succ 25mg Ext Rel Tab PO 01/02/21 08:59 25 mg DAILY JAKE Administration Miscellaneous 1 ea 12/03/20 16:00 12/03/20 22:42 Epinastine 0.05 % Drops - Order Awaiting Action N/A 01/02/21 15:59 Not Given QS JAKE Morphine Sulfate 2 mg 12/02/20 19:25 12/04/20 01:03 Morphine Sulfate 2 Mg/Ml Carp IV 12/16/20 19:24 2 mg Q4 PRN Administration Pain Ondansetron HCl 4 mg 12/02/20 19:25 12/02/20 20:37 Ondansetron Inj 2 Mg/Ml 2 Ml Vial IV 01/01/21 19:24 4 mg Q6H PRN Administration Nausea And Vomiting Pantoprazole Sodium 40 mg 12/03/20 12:00 12/03/20 12:59 Pantoprazole 40 Mg Tab PO 01/02/21 11:59 40 mg QAM JAKE Administration Sumatriptan Succinate 100 mg 12/03/20 02:25 12/03/20 02:37 Sumatriptan Succinate 100 Mg Tab PO 01/02/21 02:24 100 mg .COMPLEX PRN Administration migraine headache Tamsulosin HCl 0.4 mg 12/02/20 19:25 12/03/20 08:06 Tamsulosin Hcl 0.4 Mg Cap PO 01/01/21 19:24 0.4 mg DAILY JAKE Administration Topiramate 100 mg 12/02/20 21:00 12/03/20 19:56 Topiramate 100 Mg Tab PO 01/01/21 20:59 Not Given BID JAKE NPO Date Last Intake of Fluids: 12/04/20 Time Last Intake of Fluids: 00:01 Date Last Intake of Solids: 12/03/20 Time Last Intake of Solids: 18:00 Last Intake of Solids Comment: dinner Past Medical History Medical History (Updated 12/04/20 @ 07:08 by Maya Ohara MD) Cervicogenic headache Dehiscence of vaginal cuff HTN (hypertension) Lumbar facet joint syndrome Migraine Migraine without aura, not intractable, without status migrainosus Obstructive uropathy Renal colic Status post hysteroscopy UTI (urinary tract infection) Past Family History Family History Mother Adenosarcoma Unknown Hypertension Nephrolithiasis Father Leukemia Other Family history non-contributory Denies family history of Ovarian cancer Prostate cancer Myocardial infarction Breast cancer Colorectal cancer Past Surgical History Surgical History History of ankle surgery History of endometrial ablation S/P ACL repair S/P section S/P colonoscopy S/P knee surgery Social History Smoking Status: Never smoker Hx Alcohol Use: Yes Alcohol type: beer and wine alcohol intake frequency: holidays/special occasions only Hx Substance Use: No Physical Exam Vital Signs Last Vital Signs Temp 36.7 C 12/04/20 06:42 Pulse 77 12/04/20 06:42 Resp 16 12/04/20 06:42 BP 144/94 H 12/04/20 06:42 Pulse Ox 92 12/04/20 06:42 Testing Laboratory Results 12/03/20 06:49 12/03/20 06:49 Urine Color Dark Yellow 12/02/20 14:00 Urine Appearance Clear (Clear) 12/02/20 14:00 Urine pH 5.5 (4.5-7.5) 12/02/20 14:00 Ur Specific [place] 1.024 (1.000-1.030) 12/02/20 14:00 Urine Protein Trace (Negative) H 12/02/20 14:00 Urine Glucose (UA) Negative (Negative) 12/02/20 14:00 Urine Ketones 1+ (Negative) H 12/02/20 14:00 Urine Nitrite Negative (Negative) 12/02/20 14:00 Ur Leukocyte Esterase Negative (Negative) 12/02/20 14:00 Urine WBC (Auto) 10-30 /hpf (0-5) H 12/02/20 14:00 Urine RBC (Auto) 0-4 /hpf (0-4) 12/02/20 14:00 U Hyaline Cast (Auto) 5-10 /lpf (0-5) H 12/02/20 14:00 U Epithel Cells (Auto) >30 /lpf (0-5) H 12/02/20 14:00 Urine Bacteria (Auto) 1+ (Negative) H 12/02/20 14:00 12/02/20 14:00 Urine Culture - Preliminary Urine,Clean Catch Pin-point growth present, reincubating.
--- NOTE | 2020-12-04 08:12 | History & Physical Bridge Note ---
Date of Service December 04, 2020 History & Physical Bridge Note I have examined the patient, reviewed the History & Physical and in the interval since the performance of the History & Physical I have noted the following changes of clinical significance: no changes noted
[2020-12-04] MEDS ORDERED: ePHEDrine sulfate 50 MG/ML AMP IV PRN (08:23)
[2020-12-04] MEDS ORDERED: ONDANSETRON INJ 2 MG/ML 2 ML VIAL IV PRN (08:23)
[2020-12-04] MEDS ORDERED: ATROPINE SULFATE 0.1 MG/ML 10ML SYR IV PRN (08:23)
[2020-12-04] MEDS ORDERED: fentaNYL citrate 100 MCG/2 ML VIAL IV PRN (08:23)
--- NOTE | 2020-12-04 10:03 | Anesthesiology Progress Note ---
Date of Service December 04, 2020 Anesthesia Post Procedure Vital Signs Vital Signs: Temp Pulse Pulse Resp BP Pulse Ox 12/04/20 09:45 78 19 140/97 96 12/04/20 09:35 73 18 139/104 H 93 12/04/20 09:25 36.0 C L 80 20 152/97 H 95 12/04/20 06:42 36.7 C 77 16 144/94 H 92 12/03/20 22:50 36.6 C 81 16 134/87 94 12/03/20 16:13 36.8 C 78 15 126/80 95 Pain Intensity Flank: Pain Intensity: 4 Left Flank: Pain Intensity: 8 Transfer of Care Handoff Completed per policy Notes Mental Status: alert / awake / arousable and participated in evaluation Nausea / Vomiting: adequately controlled Pain: adequately controlled Airway Patency, RR, SpO2: stable & adequate BP & HR: stable & adequate Hydration State: stable & adequate Anesthetic Complications: no major complications apparent and Pt Satisfied with anesthetic care
--- NOTE | 2020-12-04 10:03 | Post Operative Brief Note ---
PG Immediate Post Op with CF Date of Surgery December 04, 2020 Pre & Post Diagnosis Operation Date: 12/04/20 07:30 Pre-Op Diagnosis: RENAL STONE Post-Op Diagnosis: RENAL STONE I identified the patient and participated in the time-out.: Yes Procedure Operation Date: 12/04/20 07:30 Actual Procedures p Cystoscopy, Left Ureteral Stent Insertion(Left) - Aline Galeano MD Surgeon Aline Galeano MD Child Welfare Counselor none Estimated Blood Loss 0 Findings Consistent with Post-Op Diagnosis
--- NOTE | 2020-12-04 10:04 | Fluoroscopy Report ---
INTRAOPERATIVE RADIOGRAPHS CLINICAL HISTORY: Left-sided ureteral stent placement. Fluoroscopy time: 9 seconds. FINDINGS: 2 spot fluoroscopic views of the left abdomen are correlated with abdominal CT dated 021. The images show the proximal and distal ends of a left ureteral stent in appropriate position. Q uestion a calcification in the pelvis along the distal end of the stent. IMPRESSION: 1. Left ureteral stent has been placed as above. 2. Question a calcification along the course of the stent in the left pelvis. Electronically signed by: Miguel Dutton M.D. 12/04/2020 10:03 AM
--- NOTE | 2020-12-04 10:04 | Operative Report ---
PG Post Operative Report Pre & Post Diagnosis Operation Date: 12/04/20 07:30 Pre-Op Diagnosis: RENAL STONE Post-Op Diagnosis: RENAL STONE I identified the patient and participated in the time-out.: Yes Procedure Operation Date: 12/04/20 07:30 Actual Procedures p Cystoscopy, Left Ureteral Stent Insertion(Left) - Aline Galeano MD Surgeon Aline Galeano MD Jewelry Technician none Estimated Blood Loss 0 Findings Consistent with Post-Op Diagnosis Specimens none Drains 6Fr x 26 cm left ureteral stent Anesthesia Type MAC Description of Procedure The patient was brought to the OR after risks and benefits were explained. She was placed in a lithotomy position. She was prepped and draped. I needed to dilate the urethra as the scope would not pass easily. I dilated to 24 Fr with Praveen sounds.A cystoscopy was completed with a 21 Fr cystoscope. The bladder was within normal limits. A wire was passed to the level of the kidney. Over the wire a 6Fr stent was passed into the kidney. A nice coil was seen in the kidney and bladder. The bladder was drained and she was transferred to the PACU in stable condition. I attest to the content of the Intraoperative Record and any orders documented therein. Any exceptions are noted below.
[2020-12-04] MEDS: TOPIRAMATE 100 MG TAB PO SCH ×2 (11:23→20:50)
[2020-12-04] MEDS: MAGNESIUM CHLORIDE 64MG DELAYED REL TAB PO SCH (11:24)
[2020-12-04] MEDS: METOPROLOL SUCC 25MG EXT REL TAB PO SCH (11:24)
[2020-12-04] MEDS: TAMSULOSIN HCL 0.4 MG CAP PO SCH (11:24)
[2020-12-04] MEDS: CETIRIZINE HCL 10 MG TABLET PO SCH (11:25)
[2020-12-04] MEDS: ESCITALOPRAM OXALATE 10 MG TAB PO SCH (11:25)
[2020-12-04] MEDS: PANTOprazole 40 MG TAB PO SCH (11:25)
[2020-12-04] MEDS: FLUTICASONE PROPIONATE NA SPR 16 GM BTL SCH (11:26)
[2020-12-04 12:16] LABS: Basophils # (auto) 0.01 K/uL (0-0.2); Basophils % (auto) 0.2 %; Eosinophils # (auto) 0.13 K/uL (0-0.5); Eosinophils % (auto) 2.4 %; Hematocrit (blood only) 36.8 % (37-47); Hemoglobin 12.5 g/dL (12.0-16.0); Immature Granulocytes # (auto) 0.02 K/uL (0.00-0.02); Immature Granulocytes % (auto) 0.4 %; Lymphocytes # (auto) 1.04 K/uL (1.2-3.4); Lymphocytes % (auto) 19.4 %; Mean Corpuscular Hemoglobin 30.6 pg (25-34); Mean Platelet Volume 8.7 fL (7.4-10.4); Monocytes # (auto) 0.31 K/uL (0.11-0.59); Monocytes % (auto) 5.8 %; Neutrophils # (auto) 3.85 K/uL (1.4-6.5); Neutrophils % (auto) 71.8 %; Platelet Count 249 K/uL (130-400); RDW Coefficient of Variation 13.2 % (11.5-14.5); RDW Standard Deviation 43.2 fL (36.4-46.3); Red Blood Count 4.09 M/uL (4.2-5.4); White Blood Count 5.36 K/uL (4.8-10.8)
[2020-12-04 12:52] LABS: BUN Creatinine Ratio 14.4 (10-20); Calcium 8.2 mg/dl (8.5-10.1); Est GFR (African American) 106.8 ml/min; Est GFR (Non-African American) 92.1 ml/min; Magnesium 1.7 mg/dl (1.8-2.4); Potassium 3.5 mmol/L (3.5-5.1)
--- NOTE | 2020-12-04 13:41 | Hospitalist Progress Note ---
Date of Service December 04, 2020 Assessment & Plan (1) Left flank pain: Plan: Left ureteric colic, obstructive uropathy-post stent; immediately postprocedure right rosa is still in discomfort and does not feel she is ready for discharge (2) Acid reflux disease: Plan: PPI (3) HTN (hypertension): Plan: Acceptableno change (4) UTI (urinary tract infection): Plan: Urine culture nonspecific; shows Gardnerella but she denies symptoms of bacterial vaginosis but seemed uncertain Post stent often short course of antibiotics is given by urologyawait their input Empiric metronidazole for Gardnerella Plan: Outpatient follow-up for fatty liver; should get metabolic evaluation for calcium oxalate stones Admission and Anticipated Discharge Date Admission Date: December 02, 2020 Subjective Follow-up of left flank painpost stent placement; still in discomfort Physical Exam Physical Exam: Constitutional and general: No acute distress, looks biologic age Head and face: No puffiness, atraumatic Eyes: No scleral icterus, extraocular movements normal Neck: Supple, no JVD Musculoskeletal: No acute joint swelling, no bony abnormalities Skin/dermatologic/integument: No rash, no purpura Hematologic and lymphatic: pallor none, no petechia Gastrointestinal/abdomen: Nondistended, soft, nonacute Neurologic: Cranial nerves intact, nonfocal Psychiatry: Awake, alert, pleasant, communicative Cardiovascular: Heart rhythm regular, no rub, no murmur, no gallop Respiratory: Chest movements equal, no use of accessory muscles, no adventitious sounds Extremities: No edema, no cyanosis Results & Data Results & Data ([facility]) Vital Signs (Past 12 Hours) Vital Signs Temp Pulse Pulse Resp BP Pulse Ox 12/04/20 12:25 74 16 154/96 H 95 12/04/20 11:25 36.6 C 80 16 159/98 H 92 12/04/20 10:55 75 16 161/102 H 92 12/04/20 10:25 36.8 C 75 16 162/95 H 90 12/04/20 09:55 36.5 C 78 18 140/100 92 12/04/20 09:45 78 19 140/97 96 12/04/20 09:35 73 18 139/104 H 93 12/04/20 09:25 36.0 C L 80 20 152/97 H 95 12/04/20 06:42 36.7 C 77 16 144/94 H 92 PG Care Time/CCT Total # of Minutes Spent Total Time Spent with Patient: Total time spent is greater than 50% in coordination of care (as documented) at patient's floor/unit and/or counseling patient: Coding Level of Care Code 72778 Subseq Hosp Care Lvl 3 Diagnoses Left flank pain R10.9 Acid reflux disease K21.9 HTN (hypertension) I10 UTI (urinary tract infection) N39.0
[2020-12-04] MEDS ORDERED: MAGNESIUM OXIDE 400 MG TAB PO ONE (14:00)
[2020-12-04] MEDS: cefTRIAXone SODIUM 2,000 MG in DEXTROSE 5% 50 ML IV SCH (14:25)
[2020-12-04] MEDS: D5W AND 1/2NSS 1,000 ML IV SCH (14:26)
[2020-12-04] MEDS: SODIUM CHLORIDE 0.9% 1000ML 1,000 ML IV SCH (16:07)
[2020-12-04] MEDS: metroNIDAZOLE 500 MG TAB PO SCH ×2 (17:06→20:55)
[2020-12-05] MEDS: D5W AND 1/2NSS 1,000 ML IV SCH (03:57)
[2020-12-05 08:02] LABS: Basophils # (auto) 0.03 K/uL (0-0.2); Basophils % (auto) 0.5 %; Eosinophils # (auto) 0.21 K/uL (0-0.5); Eosinophils % (auto) 3.4 %; Hematocrit (blood only) 38.5 % (37-47); Hemoglobin 13.1 g/dL (12.0-16.0); Immature Granulocytes # (auto) 0.12 K/uL (0.00-0.02); Lymphocytes # (auto) 1.56 K/uL (1.2-3.4); Lymphocytes % (auto) 25.4 %; Mean Corpuscular Volume 88.3 fL (80-100); Monocytes # (auto) 0.47 K/uL (0.11-0.59); Monocytes % (auto) 7.7 %; Neutrophils # (auto) 3.74 K/uL (1.4-6.5); Platelet Count 285 K/uL (130-400); RDW Coefficient of Variation 13.1 % (11.5-14.5); RDW Standard Deviation 42.4 fL (36.4-46.3); Red Blood Count 4.36 M/uL (4.2-5.4); White Blood Count 6.13 K/uL (4.8-10.8)
[2020-12-05 08:22] LABS: Potassium 4.2 mmol/L (3.5-5.1)
[2020-12-05 08:23] LABS: BUN Creatinine Ratio 16.4 (10-20); Calcium 8.4 mg/dl (8.5-10.1); Creatinine Clr Calc Pharmacy 101.3 ml/min; Est GFR (African American) 108.5 ml/min; Est GFR (Non-African American) 93.6 ml/min
--- NOTE | 2020-12-05 08:34 | Urology Progress Note ---
Date of Service December 05, 2020 Assessment & Plan (1) Left ureteral calculus: (2) S/P ureteral stent placement: Plan: 50 yo F POD #1 s/p cystoscopy and left stent insertion with Dr. Petersen. - Doing well, progressing as expected - Afebrile, lab work reviewed - creatinine 0.75, WBC 6.13 - Tolerating left ureteral stent with minimal bother - Recommend transition to PO pain medication - Okay to d/c from perspective when medically stable - Recommend d/c with short course of PO antibiotics, Tamsulosin, prn Pyridium and prn pain medication for stent management - Will order KUB for stone visualization for prior to discharge - Expected clinical course reviewed, all questions answered - Keep scheduled outpatient follow-up with our service to discuss definitive stone management Thank you for allowing us to participate in the acute care of Ms. Canchola. Please reconsult us with additional questions, concerns or changes in patient status. Admission and Anticipated Discharge Date Admission Date: December 02, 2020 Subjective 50 yo F POD #1 s/p cystoscopy and left stent insertion with Dr. Petersen. Awake, alert and sitting up in bed eating breakfast. Reports some left flank discomfort. Currently tolerable. She last utilized pain medication (IV Morphine 2 mg) on 12/04 @2319. Tolerating diet, no N/V. Voiding spontaneously. Intermittent dysuria, some hematuria which she reports is clearing. No F/C. Review of Systems Constitutional: as per Subjective / HPI Gastrointestinal: as per Subjective / HPI Genitourinary: as per Subjective / HPI Physical Exam 2 Constitutional: well developed and well nourished; no acute distress and not ill appearing Respiratory: normal respiratory effort and able to speak in complete sentences; no respiratory distress and no labored breathing Gastrointestinal (Abdomen): Inspection/Auscultation: abdomen normal to inspection; abdomen not distended Musculoskeletal: Head/Neck/Chest: normocephalic and head atraumatic Neurologic: moves all extremities and awake Psychiatric: Orientation: alert and oriented x 3 Genitourinary: + CVA tenderness (mildly tender to palpation left flank) Results & Data ([facility]) Vital Signs (Past 12 Hours) Vital Signs Temp Pulse Resp BP Pulse Ox 12/05/20 07:18 36.8 C 69 18 158/85 H 95 12/05/20 03:37 36.4 C L 60 16 160/100 H 93 12/04/20 22:26 36.9 C 71 16 164/105 H 93 PG Care Time/CCT Total # of Minutes Spent Total Time Spent with Patient: Total time spent is greater than 50% in coordination of care (as documented) at patient's floor/unit and/or counseling patient: Coding Level of Care Code 80092 Subseq Hosp Care Lvl 2 Diagnoses Left ureteral calculus N20.1 S/P ureteral stent placement Z96.0
[2020-12-05] MEDS: METOPROLOL SUCC 25MG EXT REL TAB PO SCH (09:57)
[2020-12-05] MEDS: CETIRIZINE HCL 10 MG TABLET PO SCH (09:57)
[2020-12-05] MEDS: ESCITALOPRAM OXALATE 10 MG TAB PO SCH (09:58)
[2020-12-05] MEDS: TAMSULOSIN HCL 0.4 MG CAP PO SCH (09:58)
[2020-12-05] MEDS: MAGNESIUM CHLORIDE 64MG DELAYED REL TAB PO SCH (09:58)
[2020-12-05] MEDS: FLUTICASONE PROPIONATE NA SPR 16 GM BTL SCH (09:59)
[2020-12-05] MEDS: metroNIDAZOLE 500 MG TAB PO SCH (09:59)
[2020-12-05] MEDS: TOPIRAMATE 100 MG TAB PO SCH (10:00)
--- NOTE | 2020-12-05 10:38 | Discharge Summary ---
Date of Service December 05, 2020 Admission HPI Per Admitting Provider Alma Delia Canchola is a 50-year-old female with history of hypertension, migraine, prior kidney stones presenting with left flank pain. Patient states that she has been having left flank pain for the last 4 to 5 days. The pain is constant in nature with intermittent worsening. She was seen in the emergency room 2 days ago and diagnosed with a 6 mm stone. She was stable during her ER stay and was discharged home with oxycodone, Zofran, and Flomax with instructions to follow-up with her PCP and urology. Patient reports that upon returning home she had worsening nausea as well as vomiting and inability to tolerate p.o. intake. She was unable to take her medications. Her pain on the left flank persisted. She denies fever but has had some chills as well as diarrhea and vomiting. No additional complaints at this time. Principal Diagnosis left ureteral stone Discharge Exam Constitutional and general: No acute distress, looks biologic age Head and face: No puffiness, atraumatic Eyes: No scleral icterus, extraocular movements normal Neck: Supple, no JVD Musculoskeletal: No acute joint swelling, no bony abnormalities Skin/dermatologic/integument: No rash, no purpura Hematologic and lymphatic: pallor none, no petechia Gastrointestinal/abdomen: Nondistended, soft, nonacute Neurologic: Cranial nerves intact, nonfocal Psychiatry: Awake, alert, pleasant, communicative Cardiovascular: Heart rhythm regular, no rub, no murmur, no gallop Respiratory: Chest movements equal, no use of accessory muscles, no adventitious sounds Extremities: No edema, no cyanosis Discharge Data Allergies Allergy/AdvReac Type Severity Reaction Status Date / Time diclofenac [From [place]] AdvReac Intermediate Nausea Unverified 12/05/20 16:02 Consultations 12/02/20 16:25 Consult Urology Routine 12/02/20 16:50 ED Decision to Admit Stat Procedures Performed Operation Date: 12/04/20 07:30 Actual Procedures p Cystoscopy, Left Ureteral Stent Insertion(Left) - Aline Galeano MD Ordered Studies 12/02/20 13:34 CT abd pelvis wo con Stat 12/04/20 07:00 FL KUB Routine Hospital Course (1) Left flank pain: Left ureteric colic, obstructive uropathy-post stent; will have close followup with Urology. recommended 3 days of Keflex. (2) Acid reflux disease: PPI (3) HTN (hypertension): Acceptableno change (4) UTI (urinary tract infection): Urine culture nonspecific; shows Gardnerella but she denies symptoms of bacterial vaginosis but seemed uncertain Post stent often short course of antibiotics is given by urology: as above Empiric metronidazole for Gardnerella: 7 days total Outpatient follow-up for fatty liver; should get metabolic evaluation for calcium oxalate stones Total Time Total Time Spent Total Time Spent (In Minutes): 32 Discharge Plan Discharge Items Patient Disposition: Home - Self-Care Reason For Visit: RENAL STONE Discharge Diagnosis: renal stone Activity: Resume your previous activity Non-emergency contact: Primary Care Provider Call non-emergency contact if: you have any medication questions Follow-up/Referrals: Tara Fontana MD [Primary Care Provider] - 12/15/20 10:15 am Simi Galeano PA-C [Physician Station Inspector] - 12/05/20 4:00 pm Diet: Regular Addtl Attending Provider Instructions: As you are tolerating left ureteral stent. Will recommend close followup with Urology as an outpatient. -Will continue oral medications: tylenol mild pain and Ibuprofen for moderate pain. - Okay to d/c from perspective when medically stable - Recommend short course of PO antibiotics: Cephalexin(first dose at noon) for 3 days, Metronidazol for 6 more days. -Continue Tamsulosin, prn Pyridium and prn pain medication for stent management - Keep scheduled outpatient follow-up with our service to discuss definitive stone management Pending Studies at Discharge: No Stand-Alone Forms: My [place], Work/School Release, Smoking Cessation Medications and DC Order Prescriptions: New cephalexin 500 mg tablet 500 mg PO Q6H 3 Days Qty: 12 RF: 0 metronidazole 500 mg tablet 500 mg PO BID 6 Days Qty: 12 RF: 0 acetaminophen 325 mg tablet 650 mg PO Q6H PRN (Reason: pain) Qty: 30 RF: 0 Continued promethazine 25 mg tablet 25 mg PO TID PRN (Reason: nausea and vomiting) 30 Days Qty: 90 RF: 5 metoprolol succinate 25 mg tablet extended release 24 hr 25 mg PO DAILY Qty: 90 RF: 3 cyclobenzaprine 10 mg tablet 10 mg PO BID PRN (Reason: muscle spasm) 30 Days Qty: 60 RF: 5 Hold Instructions: while on tizanidine diclofenac sodium 75 mg tablet,delayed release (DR/EC) 75 mg PO BID 30 Days Qty: 60 RF: 5 Hold Instructions: on naproxen topiramate 100 mg tablet 100 mg PO BID Qty: 60 RF: 5 fluticasone propionate [Flonase Allergy Relief] 50 mcg/actuation spray,suspension 2 spray INTRANASAL DAILY Qty: 48 RF: 1 magnesium chloride [Mag 64] 64 mg tablet,delayed release (DR/EC) 64 mg PO DAILY Qty: 30 RF: 5 Ajovy Autoinjector 225 mg/1.5 mL auto-injector 225 mg subcut MONTHLY Qty: 1.5 RF: 2 sumatriptan succinate [Imitrex] 100 mg tablet 100 mg PO .COMPLEX PRN (Reason: migraine headache) 30 Days Qty: 9 RF: 2 escitalopram oxalate 10 mg tablet 10 mg PO DAILY Qty: 30 RF: 5 epinastine 0.05 % drops 2 drp ophthalmic (eye) QAM Qty: 5 RF: 1 cetirizine [Zyrtec] 10 mg Tablet 10 mg PO DAILY RF: 0 multivitamin Tablet 1 tab PO DAILY RF: 0 omeprazole 40 mg capsule,delayed release(DR/EC) 40 mg PO DAILY PRN (Reason: Heartburn) RF: 0 tamsulosin [Flomax] 0.4 mg capsule 0.4 mg PO DAILY 7 Days Qty: 7 RF: 0 Discontinued ondansetron 4 mg tablet,disintegrating 4 mg PO Q8H PRN (Reason: nausea and vomiting) Qty: 10 RF: 0 oxycodone 5 mg tablet 5 mg PO Q6H PRN (Reason: pain, severe) Qty: 12 RF: 0 Discharge Orders: Discharge Order (Routine); Ordered 12/05/20 Ordered By: Ruben Mallory Admission Data Admit Date/Time: 12/02/20 16:25 Attending Provider: Ruben Mallory Admit Provider: Stefani Castorena Primary Care Provider: Tara Fontana Other Providers: Stefani Castorena ; Vitor Peace ; Jack Byrd ; Mumtaz Johnson ; Brenda Weathers ; Suresh Barriga ; Lizette Cheatham ; Trudy Baum ; Simi Galeano ; Mendel Robbins ; Galen Storm ; Analisa Salas ; Aline Galeano Other Interventions: Discharge Summary Assessment (RN) Last Done: 12/05/20 13:05 Coding Level of Care Code D/C DAY MANAGEMENT >30 MINS Diagnoses Left flank pain R10.9 Acid reflux disease K21.9 HTN (hypertension) I10 UTI (urinary tract infection) N39.0
--- NOTE | 2020-12-05 10:46 | XRay Report ---
KUB HISTORY: Follow up study in a patient with left ureteral calculus left ureteral stone COMPARISON: CT abdomen and pelvis and KUB 12/02/2020. FINDINGS: Moderate fecal retention. No shadows are obscured by bowel gas. 5. The inferior pole right kidney are redemonstrated measuring up to 1.6 cm. Left renal calculi measu re up to approximately 4 mm. Mild distal migration of the 6 mm left ureteral calculus, now the level of the inferior sacrum. Left ureteral stent appears to be in satisfactory positioning. Pelvic basin p hleboliths. No pneumoperitoneum or pneumatosis. No fracture. IMPRESSION: 1. Satisfactory positioning of the left ureteral stent. Mild distal migration of the 6 mm left ureter al calculus. 2. Bilateral nephrolithiasis redemonstrated. ACT 112: Negative or not required by law. The above report was generated using voice recognition software. It may contain grammatical, syntax o r spelling errors. Electronically signed by: Issa Quiles M.D. 12/05/2020 10:45 AM
[2020-12-05] MEDS ORDERED: cephALEXin 500 MG CAP PO SCH (13:00)
== END 2020-12-05 13:52 | disposition home or self-care (01) | DRG 661 ==
LOC: ED 10:55 → 3N 16:25 → SUATTDRO 16:25 → 3N 18:28